=== PATIENT | female | born 1955 | race Caucasian/White ===

== ENCOUNTER 2020-10-26 09:10 | Outpatient (CLI) | payer OTHER, SELFPAY ==
--- NOTE | ~2020-10-26 | MM_ITS ---
EXAMINATION: MM screening [facility] BI w [place] HISTORY: Screening mammogram TECHNIQUE: Craniocaudal and mediolateral oblique 3-D tomosynthesis images were obtained and synthetic 2-D images were generated. CAD analysis was submitted and interpreted. COMPARISON: 10/02/2019, 09/09/2018, 08/13/2017, 07/31/2016 BREAST PARENCHYMAL COMPOSITION: There are scattered areas of fibroglandular density. FINDINGS: There is no evidence of suspicious mass, calcification, or architectural distortion to sugg est malignancy in either breast. There has been no suspicious interval change. IMPRESSION: 1. No mammographic evidence of malignancy. 2. Recommend routine screening mammography in one year. BI-RADS Category 2: Benign finding(s). Reviewed, dictated and finalized at location A. [employer]IST
== END 2020-10-26 09:11 | disposition home or self-care (01) ==
PROVIDERS: PCP Family Medicine; Visit Provider Nurse Practitioner Obstetrics & Gynecology
DX: Z12.31 Encounter for screening mammogram for malignant neoplasm of breast (principal)
CPT/HCPCS: 77063; 77067

== ENCOUNTER 2021-05-16 14:43 | Outpatient (CLI) | payer MEDICARE, SELFPAY ==
--- NOTE | ~2021-05-16 | DEXA_ITS ---
Bone Density Report Name: Nina Patel Age: 66 Sex: Female Ethnicity: White Date of : 1955 Indication: postmenopausal; Referring Provider: Ivette Milton Study: Bone densitometry was performed. Exam Date: May 16, 2021 Accession number: [id number] Bone Density: Region BMD T-score Z-score Classification AP Spine (L1, L2, L3) 0.968 -0.5 1.3 Normal Femoral Neck (Left) 0.744 -0.9 0.6 Normal Total Hip (Left) 0.905 -0.3 0.9 Normal Total Hip Bilateral Avg 0.913 -0.3 0.9 Normal Femoral Neck (Right) 0.809 -0.4 1.2 Normal Total Hip (Right) 0.920 -0.2 1.0 Normal World Health Organization criteria for BMD impression classify patients as: Normal (T-score at or above -1.0), Osteopenia (T-score between -1.0 and -2.5), or Osteoporosis (T-score at or below -2.5). 10-year Fracture Risk: FRAX not reported because: All T-scores for Spine Total, Hip Total, Femoral Neck at or above -1.0 Previous Exams: Region Exam Age BMD T-score BMD Change BMD Change Date g/cm2 vs Baseline vs Previous AP Spine(L1, L2, L3) 05/16/2021 66 0.968 -0.5 -0.040(-4.0%)# -0.019(-1.9%)# 05/28/2013 58 0.987 -0.3 -0.021(-2.1%)# -0.072(-6.8%)# 02/26/2009 53 1.058 0.4 0.051(5.0%)* 0.051(5.0%)* 01/24/2007 51 1.008 -0.1 Total Hip(Left) 05/16/2021 66 0.905 -0.3 -0.074(-7.6%)# -0.093(-9.3%)# 05/28/2013 58 0.998 0.5 0.018(1.9%)# 0.003(0.3%)# 02/26/2009 53 0.995 0.4 0.016(1.6%) 0.016(1.6%) 01/24/2007 51 0.979 0.3 Total Hip(Right) 05/16/2021 66 0.920 -0.2 -0.110(-10.7%) -0.084(-8.4%)# 05/28/2013 58 1.004 0.5 -0.026(-2.5%)# -0.035(-3.3%)# 02/26/2009 53 1.038 0.8 0.009(0.9%) 0.009(0.9%) 01/24/2007 51 1.030 0.7 *Denotes significance at 95% confidence level, LSC for AP Spine = 0.022 g/cm2, LSC for Total Hip = 0.027 g/cm2 Clinical Information Provided by Patient: Patient maximum height was 64 Menopause Age: 56 Drinks caffeinated beverages Onset of menses at age 17 Number of children 0 Impression: The patient has normal bone mass. No significant bone loss was observed. Discussion: BONE DENSITY IS ABOVE THE MINIMUM DESIRABLE LEVEL AT ALL SKELETAL SITES TESTED. This patient?s bone mineral density is above the minimum desirable level (T-score -1.0 or better) at all sites measured. The patient should follow a healthful lifestyle (good nutrition with adequate calcium and vitamin D, and appropriate toyin
== END 2021-05-16 14:44 | disposition home or self-care (01) ==
LOC: ANHIMG 14:45
PROVIDERS: PCP Family Medicine; Visit Provider Physician Assistant
DX: Z78.0 Asymptomatic menopausal state (principal)
CPT/HCPCS: 77080

== ENCOUNTER 2021-10-28 07:32 | Outpatient (CLI) | payer MEDICARE, SELFPAY ==
--- NOTE | ~2021-10-28 | MM_ITS ---
EXAMINATION: MM screening [facility] BI w [place] HISTORY: Screening mammogram TECHNIQUE: Craniocaudal and mediolateral oblique 3-D tomosynthesis images were obtained and synthetic 2-D images were generated. CAD analysis was submitted and interpreted. COMPARISON: 10/26/2020, 10/02/2019, 09/09/2018 BREAST PARENCHYMAL COMPOSITION: There are scattered areas of fibroglandular density. FINDINGS: There is no evidence of suspicious mass, calcification, or architectural distortion to sugg est malignancy in either breast. There has been no suspicious interval change. IMPRESSION: 1. No mammographic evidence of malignancy. 2. Recommend routine screening mammography in one year. BI-RADS Category 1: Negative Reviewed, dictated and finalized at location A. [employer]RE[employer] ANALYST
== END 2021-10-28 07:33 | disposition home or self-care (01) ==
PROVIDERS: PCP Family Medicine; Visit Provider Family Medicine
DX: Z12.31 Encounter for screening mammogram for malignant neoplasm of breast (principal)
CPT/HCPCS: 77063; 77067

== ENCOUNTER 2022-07-10 09:49 | Outpatient (CLI) | payer MEDICARE, SELFPAY ==
--- NOTE | 2022-07-10 10:00 | EST_ITS ---
Patient Info Name: Nina Patel Age: 67 years : 1955 Gender: Female Exam Date: 07/10/2022 11:07 AM Exam Location: [facility] Stress Patient Status: Outpatient Admit Date: 07/10/2022 Staff Ordering Physician: Sara Vee Attending Provider: Jessa Abbasi DO Exercise Technologist: Celine Mcghee RDCS Exercise Physician: Dimitrios Silva DO Exam Type: CA stress test treadmill Study Info Indications R01.1 - Cardiac murmur, unspecified A treadmill exercise stress test was performed. Summary 1. 1. Negative Rasheed exercise stress test for ischemic ST changes by ECG criteria. 2. 2. Good functional capacity, achieving 7 METs of workload. 3. 3. Appropriate HR response to exercise. 4. 4. Appropriate HR recovery at 1 minute post exercise. 5. 5. No imaging with stress testing. 6. 6. Patient informed of the above results. Protocol: Rasheed Stress ECG Details Stage: REST Duration (min): 1 min : 20 sec Speed (mph): 0.0 Grade (%): 0 HR (bpm): 77 SBP (mmHg): 129 DBP (mmHg): 102 METS: --- Stage: REST Duration (min): 20 min : 50 sec Speed (mph): 0.0 Grade (%): 0 HR (bpm): 78 SBP (mmHg): 129 DBP (mmHg): 102 METS: --- Stage: STAGE 1 Duration (min): 1 min : 0 sec Speed (mph): 1.7 Grade (%): 10 HR (bpm): 98 SBP (mmHg): 129 DBP (mmHg): 102 METS: --- Stage: STAGE 1 Duration (min): 2 min : 0 sec Speed (mph): 1.7 Grade (%): 10 HR (bpm): 112 SBP (mmHg): 129 DBP (mmHg): 102 METS: --- Stage: STAGE 1 Duration (min): 3 min : 0 sec Speed (mph): 1.7 Grade (%): 10 HR (bpm): 127 SBP (mmHg): 129 DBP (mmHg): 102 METS: --- Stage: STAGE 2 Duration (min): 1 min : 0 sec Speed (mph): 2.5 Grade (%): 12 HR (bpm): 168 SBP (mmHg): 160 DBP (mmHg): 108 METS: --- Stage: STAGE 2 Duration (min): 1 min : 30 sec Speed (mph): 2.5 Grade (%): 12 HR (bpm): 145 SBP (mmHg): 160 DBP (mmHg): 108 METS: --- Stage: RECOVERY Duration (min): 0 min : 29 sec Speed (mph): 0.0 Grade (%): 0 HR (bpm): 174 SBP (mmHg): 175 DBP (mmHg): 105 METS: --- Stage: RECOVERY Duration (min): 1 min : 29 sec Speed (mph): 0.0 Grade (%): 0 HR (bpm): 118 SBP (mmHg): 160 DBP (mmHg): 100 METS: --- Stage: RECOVERY Duration (min): 2 min : 29 sec Speed (mph): 0.0 Grade (%): 0 HR (bpm): 104 SBP (mmHg): 160 DBP (mmHg): 100 METS: --- Stage: RECOVERY Duration (min): 3 min : 29 sec Speed (mph): 0.0 Grade (%): 0 HR (bpm): 96 SBP (mmHg): 159 DBP (mmHg): 113 METS: --- Stage: RECOVERY Duration (min): 4 min : 29 sec Speed (mph): 0.0 Grade (%): 0 HR (bpm): 91 SBP (mmHg): 159 DBP (mmHg): 113 METS: --- Stage: RECOVERY Duration (min): 4 min : 57 sec Speed (mph): 0.0 Grade (%): 0 HR (
== END 2022-07-10 09:50 | disposition home or self-care (01) ==
LOC: ANHCARD 09:51
PROVIDERS: PCP Family Medicine; Visit Provider Family Medicine
DX: R01.1 Cardiac murmur, unspecified (principal)
CPT/HCPCS: 93017

== ENCOUNTER 2022-12-09 08:03 | Outpatient (CLI) | payer MEDICARE, SELFPAY ==
--- NOTE | ~2022-12-09 | MM_ITS ---
EXAMINATION: MM screening [facility] BI w [place] HISTORY: Screening mammogram TECHNIQUE: Craniocaudal and mediolateral oblique 3-D tomosynthesis images were obtained and synthetic 2-D images were generated. CAD analysis was submitted and interpreted. COMPARISON: 10/28/2021, 10/26/2020, 10/02/2019 bilateral screening mammogram examinations BREAST PARENCHYMAL COMPOSITION: There are scattered areas of fibroglandular density. FINDINGS: There is no evidence of suspicious mass, calcification, or architectural distortion to sugg est malignancy in either breast. There has been no suspicious interval change. IMPRESSION: 1. No mammographic evidence of malignancy. 2. Recommend routine screening mammography in one year. BI-RADS Category 1: Negative Reviewed, dictated and finalized at location A. [employer]
== END 2022-12-09 08:04 | disposition home or self-care (01) ==
PROVIDERS: PCP Family Medicine; Visit Provider Family Medicine
DX: Z12.31 Encounter for screening mammogram for malignant neoplasm of breast (principal)
CPT/HCPCS: 77063; 77067

== ENCOUNTER 2023-05-31 08:19 | Outpatient (CLI) | payer MEDICARE, SELFPAY ==
--- NOTE | 2023-06-11 18:40 | WPDHOMESLEEP ---
Sleep Study - Home Unattended Date of Study: 05/31/23 Ordering Provider: ABDIRAHMAN LoweC Interpreting Provider: Mary Trammell, DO Home Sleep Study Type: Watch PAT Height: 1.63 m Weight: 65.771 kg Body Mass Index: 24.9 Neck Circumference (inches): 14 [place]: 2 Reason for Sleep Study Wakes herself up from snoring Sleep History The patient is a 68-year-old female with hypertension, hyperlipidemia, GERD and depression that had a sleep study ordered by her primary care for evaluation of sleep apnea. She occasionally awakens from sleep short of breath. She rarely awakens at night with heartburn, belching or cough. She occasionally snores and is occasionally loud enough that others complain. She frequently has trouble sleeping when she has a cold. She occasionally wakes up gasping for air throughout the night. She rarely has breathing problems at night observed by herself or others. She frequently sweats excessively at night. She rarely has heart palpitations or irregular heartbeats during the night. She denies falling asleep during the day and while driving. She denies sleep paralysis, cataplexy and hypnagogic / hypnopompic hallucinations. She denies having trouble at school or work due to sleepiness. She denies feeling afraid of going to sleep. She occasionally has nightmares and occasionally remembers her dreams. She occasionally has thoughts racing through her mind. She occasionally feels sad, depressed and anxious. She rarely has muscular tension. She rarely notices parts of her body jerk. She rarely kicks during the night. She occasionally has crawling and aching feelings in her legs and occasionally has leg pain during the night. He occasionally grinds her teeth during sleep and occasionally awakens with morning jaw pain. She is occasionally bothered by pain during the day but rarely awakened by pain during the night. She rarely wakes up feeling stiff in the morning. She rarely wakes up with sore or achy muscles. She rarely wakes up with pain in the neck, spine or other joints. She goes to bed at 10:00 p.m. on both weekdays and weekends. It takes her 30 minutes to fall asleep. She wakes up twice throughout the night to urinate and is able to fall back asleep within a few minutes. She wakes up at 7:30 a.m. on weekdays and 8:30 a.m. on the weekends. She typically gets 8 hours of sleep per night. She will stay in bed for a few minutes after waking up in the morning. She currently lives with her but they sleep in separate bedrooms. She does not consume any caffeinated beverages within 2 hours of bedtime. She does not engage in physical exercise before bedtime. He will read before falling asleep. She will occasionally take a nap in the afternoon or the evening but they are not refreshing. She does not consume any caffeinated beverages throughout the day. She will have alcoholic beverages twice per month. She denies tobacco or recreational drug use. [facility] Past Medical History Medical History Encounter for dual-energy x-ray absoptiometry review (~05/2013) Hepatitis C antibody test negative (01/02/07) History of bone density study (~05/28/13) History of chicken pox History of measles History of mumps Hyperlipidemia Surgical History Surgical History History of dilatation and curettage (~11/22/09) Family History Family History Father Family history of elevated blood lipids Family history of coronary artery disease Bipolar 1 disorder Mother Hypertension Sibling Bipolar 1 disorder Sibling No chronic problems Social History Social History Smoking status: Never smoker Alcohol intake: current Substance use: never Substance use type: does not use Lack of Tr
[2023-06-11 18:41] VITALS: BMI 24.9
== END 2023-06-01 09:56 | disposition home or self-care (01) ==
LOC: ANHCSM 08:20
PROVIDERS: PCP Family Medicine; Visit Provider Nurse Practitioner
DX: G47.33 Obstructive sleep apnea (adult) (pediatric) (principal)
CPT/HCPCS: 95800

== ENCOUNTER 2023-12-11 07:21 | Outpatient (CLI) | payer MEDICARE, SELFPAY ==
--- NOTE | ~2023-12-11 | MM_ITS ---
EXAMINATION: MM screening [facility] BI w [place] HISTORY: Screening TECHNIQUE: Craniocaudal and mediolateral oblique 3-D tomosynthesis images were obtained and synthetic 2-D images were generated. CAD analysis was submitted and interpreted. COMPARISON: Comparison to multiple prior studies sequentially, with oldest reviewed study dated 07/23. BREAST PARENCHYMAL COMPOSITION: Not dense: There are scattered areas of fibroglandular density. FINDINGS: There is a new focal asymmetry superiorly in the left breast on MLO view. The right breast is stable without evidence for malignancy. IMPRESSION: 1. New focal left breast asymmetry superiorly on MLO view. 2. Additional mammographic views and possible breast ultrasound are recommended. BI-RADS Category 0: Incomplete: Needs additional imaging evaluation. Reviewed, dictated and finalized at location A. UP MAN IMPRESSION: 1. New focal left breast asymmetry superiorly on MLO view. 2. Additional mammographic views and possible breast ultrasound are recommended . BI-RADS Category 0: Incomplete: Needs additional imaging evaluation.
== END 2023-12-11 07:22 | disposition home or self-care (01) ==
PROVIDERS: PCP Family Medicine; Visit Provider Nurse Practitioner
DX: Z12.31 Encounter for screening mammogram for malignant neoplasm of breast (principal); R92.8 Other abnormal and inconclusive findings on diagnostic imaging of breast
CPT/HCPCS: 77063; 77067

== ENCOUNTER 2024-01-07 10:09 | Outpatient (CLI) | payer MEDICARE, SELFPAY ==
--- NOTE | ~2024-01-07 | MMUS_ITS ---
EXAMINATION: MM diagnostic [facility] LT w [place], US breast LT limited HISTORY: Follow-up left breast asymmetry TECHNIQUE: Additional 3-D tomosynthesis images of the left breast were performed and synthetic 2-D im ages were generated. CAD analysis was submitted and interpreted. High resolution Limited left breast ultrasound was performed. COMPARISON: 12/11/2023 BREAST PARENCHYMAL COMPOSITION: Not dense: There are scattered areas of fibroglandular density. FINDINGS: MAMMOGRAPHIC FINDINGS: Focal asymmetry superiorly in the left breast is less apparent with spot compression and mediolateral views. No discrete mass, suspicious architectural distortion or abnormal calcifications. ULTRASOUND: Limited left breast ultrasound: At 2:30, 7 cm from the nipple is an oval hypoechoic parallel oriented 5 mm mass without posterior features or internal vascularity, likely corresponding to the area of ma mmographic concern. IMPRESSION: 1. Left breast mass at 2:30, 7 cm from the nipple measuring 5 mm, likely benign. 2. Recommend 6 month follow-up diagnostic left mammogram and Limited ultrasound. BI-RADS category 3, probably benign findings. Reviewed, dictated and finalized at location A. IMPRESSION: 1. Left breast mass at 2:30, 7 cm from the nipple measuring 5 mm, likely benign . 2. Recommend 6 month follow-up diagnostic left mammogram and Limited ultrasound . BI-RADS category 3, probably benign findings.
== END 2024-01-07 10:10 | disposition home or self-care (01) ==
LOC: ANHIMG 10:10
PROVIDERS: PCP Family Medicine; Visit Provider Family Medicine
DX: R92.8 Other abnormal and inconclusive findings on diagnostic imaging of breast (principal)
CPT/HCPCS: 76642; 77061; 77065; G0279

== ENCOUNTER 2024-07-22 10:44 | Outpatient (CLI) | payer MEDICARE, SELFPAY ==
--- NOTE | ~2024-07-22 | MMUS_ITS ---
EXAMINATION: US breast LT limited, MM diagnostic [facility] LT w [place] HISTORY: Follow-up left breast mass TECHNIQUE: Additional 3-D tomosynthesis images of the left breast were performed and synthetic 2-D im ages were generated. CAD analysis was submitted and interpreted. High resolution Limited left breast ultrasound was performed. COMPARISON: Comparison to multiple prior studies sequentially, with oldest reviewed study dated 07/23. BREAST PARENCHYMAL COMPOSITION: Not dense: There are scattered areas of fibroglandular density. FINDINGS: MAMMOGRAPHIC FINDINGS: There are nodular asymmetries in the upper outer quadrant of the left breast, unchanged from prior ex aminations. No new masses, calcifications or architectural distortion. ULTRASOUND: Limited left breast ultrasound: At 2:30, 7 cm from the nipple there is an oval circumscribed encapsul ated 5 mm hypoechoic nodule without posterior features or internal vascularity, likely benign. No add itional masses are seen. IMPRESSION: 1. Stable likely benign findings of the left breast. 2. Given one year of interval stability, recommend 12 month followup bilateral mammogram and Limited left breast ultrasound BI-RADS category 3, probably benign findings. Reviewed, dictated and finalized at location B. IMPRESSION: 1. Stable likely benign findings of the left breast. 2. Given one year of interval stability, recommend 12 month followup bilateral mammogram and Limited left breast ultrasound BI-RADS category 3, probably benign findings.
== END 2024-07-22 10:45 | disposition home or self-care (01) ==
LOC: ANHIMG 10:46
PROVIDERS: PCP Family Medicine; Visit Provider Nurse Practitioner
DX: R92.8 Other abnormal and inconclusive findings on diagnostic imaging of breast (principal)
CPT/HCPCS: 76642; 77061; 77065; G0279

== ENCOUNTER 2024-08-14 10:17 | Outpatient (CLI) | payer MEDICARE, SELFPAY ==
--- NOTE | ~2024-08-14 | US_ITS ---
Right second distal phalanx area anteriorly ULTRASOUND Ordering provider: Marti Steele MD History: . Localized swelling, mass and lump, right upper [place] . Comparison: None. FINDINGS/impression: No definite abnormality seen. Reviewed, dictated and finalized at location A.
== END 2024-08-14 10:18 | disposition home or self-care (01) ==
PROVIDERS: PCP Plastic Surgery; Visit Provider Plastic Surgery
DX: R22.31 Localized swelling, mass and lump, right upper limb (principal)
CPT/HCPCS: 76882

== ENCOUNTER 2024-10-08 01:24 | Day surgery (SDC) | payer MEDICARE, SELFPAY ==
[2024-09-25 14:21] VITALS: BMI 25.0
[2024-10-08 06:20] VITALS: BP 111/77; PULSE 69; RESP 16; TEMP 36.1; O2SAT 95; BMI 24.9
[2024-10-08] MEDS: LACTATED RINGERS 1,000 ML 150 ML IV CONT (06:30)
--- NOTE | 2024-10-08 06:54 | P.PNAN_ITS ---
Anes - Initial Pre Proc Eval Procedure: Operation Date: 10/08/24 07:30 Proposed Procedures p Colonoscopy - Milton Samano MD Date/Time: 10/08/24 06:54 Surgeon: Milton Samano MD Pre Op Diagnosis: hx of colon polyps Patient Data Age: 69 Gender: F Height: 1.63 m Weight: 65.8 kg Last Vital Signs Temp 36.1 C L 10/08/24 06:20 Pulse 69 10/08/24 06:20 Resp 16 10/08/24 06:20 BP 111/77 10/08/24 06:20 Pulse Ox 95 10/08/24 06:20 O2 Del Method Room Air 10/08/24 06:20 Allergies Allergy/AdvReac Type Severity Reaction Status Date / Time No Known Allergies Allergy Verified 10/08/24 06:18 Home Medications ?Medication ?Instructions ?Recorded ?Confirmed ?Type multivit with minerals-iron 18 1 tablet PO 10/01/19 07/31/24 History mg-folic ac 400 mcg-vit K 25 mcg tablet (Adults Multivitamin) alprazolam 0.5 mg tablet 0.5 mg PO .COMPLEX 09/04/23 09/25/24 History cholecalciferol (vitamin D3) 50 50 mcg PO DAILY 09/04/23 10/08/24 History mcg (2,000 unit) tablet venlafaxine 150 mg 150 mg PO DAILY 09/04/23 10/08/24 History capsule,extended release 24 hr omeprazole 20 mg capsule,delayed 20 mg PO DAILY #90 caps 05/05/24 10/08/24 Rx release metoprolol succinate 50 mg See Rx Instructions .Route 05/27/24 10/08/24 Rx tablet,extended release 24 hr .COMPLEX #90 tabs fenofibrate 160 mg tablet See Rx Instructions .Route 08/04/24 10/08/24 Rx .COMPLEX #90 tabs lisinopril 5 mg tablet 5 mg PO DAILY #90 tabs 10/01/24 10/08/24 Rx Patient hx anesthesia problems: none Family hx anesthesia problems: none Results Review: All pre-operative results and documents have been reviewed as part of the pre- operative evaluation. [facility] Past Medical History Medical History Encounter for dual-energy x-ray absoptiometry review (~05/2013) Hepatitis C antibody test negative (01/02/07) History of bone density study (~05/28/13) History of chicken pox History of measles History of mumps Hyperlipidemia Surgical History Surgical History History of dilatation and curettage (~11/22/09) Family History Family History Father Family history of elevated blood lipids Family history of coronary artery disease Bipolar 1 disorder Mother Hypertension Sibling Bipolar 1 disorder Sibling No chronic problems Social History Social History Smoking status: Never smoker Alcohol intake: current Substance use: never Substance use type: does not use Lack of Transportation: No Lack of Food: Never True Current Housing: I Have Housing Concerned About Future Housing: No Difficulty Paying Gas/Electric Bills: No Difficulty Paying for Meds: No Currently Unemployed: No Education: Bachelor's Degree Difficulty w/ Childcare or Family Care: No Anes - Eval Final PreProcedure Day of Procedure 10/08/24 06:54 Patient weight: normal Heart: regular rate and rhythm Lungs: clear to auscultation Airway: Mallampati scale class II Neurological: alert and oriented Last oral intake: >/= 8 hours ASA classification: II Emergent: no Anesthetic plan: proceed Anesthesia type and monitoring: general GIVS and standard monitoring Results Review: All pre-operative results and documents have been reviewed as part of the pre- operative evaluation. Informed Consent: The patient's anesthetic plan and its attendant risks and benefits were discussed with the patient/family/POA. Questions were solicited and answers provided to the satisfaction of the patient/family/POA.
--- NOTE | 2024-10-08 07:24 | PM.IMHP ---
H&P: HPI History of Present Illness Date/Time: 10/08/24 07:24 Chief Complaint: History of colon polyps Narrative: The patient has a history of colonic polyps, the last colonoscopy was 5 years ago. Review of Systems Review of Systems: All systems reviewed & are unremarkable except as noted in HPI and below PMFSH Past Medical History Medical History Encounter for dual-energy x-ray absoptiometry review (~05/2013) Hepatitis C antibody test negative (01/02/07) History of bone density study (~05/28/13) History of chicken pox History of measles History of mumps Hyperlipidemia Surgical History Surgical History History of dilatation and curettage (~11/22/09) Family History Family History Father Family history of elevated blood lipids Family history of coronary artery disease Bipolar 1 disorder Mother Hypertension Sibling Bipolar 1 disorder Sibling No chronic problems Social History Social History Smoking status: Never smoker Alcohol intake: current Substance use: never Substance use type: does not use Lack of Transportation: No Lack of Food: Never True Current Housing: I Have Housing Concerned About Future Housing: No Difficulty Paying Gas/Electric Bills: No Difficulty Paying for Meds: No Currently Unemployed: No Education: Bachelor's Degree Difficulty w/ Childcare or Family Care: No Meds Home Medications and Allergies Home Medications ?Medication ?Instructions ?Recorded ?Confirmed ?Type multivit with minerals-iron 18 1 tablet PO 10/01/19 07/31/24 History mg-folic ac 400 mcg-vit K 25 mcg tablet (Adults Multivitamin) alprazolam 0.5 mg tablet 0.5 mg PO .COMPLEX 09/04/23 09/25/24 History cholecalciferol (vitamin D3) 50 50 mcg PO DAILY 09/04/23 10/08/24 History mcg (2,000 unit) tablet venlafaxine 150 mg 150 mg PO DAILY 09/04/23 10/08/24 History capsule,extended release 24 hr omeprazole 20 mg capsule,delayed 20 mg PO DAILY #90 caps 05/05/24 10/08/24 Rx release metoprolol succinate 50 mg See Rx Instructions .Route 05/27/24 10/08/24 Rx tablet,extended release 24 hr .COMPLEX #90 tabs fenofibrate 160 mg tablet See Rx Instructions .Route 08/04/24 10/08/24 Rx .COMPLEX #90 tabs lisinopril 5 mg tablet 5 mg PO DAILY #90 tabs 10/01/24 10/08/24 Rx Allergies Allergy/AdvReac Type Severity Reaction Status Date / Time No Known Allergies Allergy Verified 10/08/24 06:18 Vital Signs Vital Signs - 24 hr 10/08/24 06:20 Temperature 97 F L Pulse Rate 69 Respiratory Rate 16 Blood Pressure 111/77 Pulse Oximetry 95 Oxygen Delivery Room Air Exam Const: General: cooperative and healthy appearing Resp: Effort & Inspection: normal respiratory effort and able to speak in complete sentences Auscultation: clear to auscultation bilaterally Cardio: Rate: regular rate Rhythm: regular rhythm GI: Inspection: normal to inspection GI Palp: No No hepatosplenomegaly present Auscultation: normal bowel sounds Rectal Exam: deferred Skin: General skin exam: normal color Psych: Appearance: grossly normal Mental Status: mental status grossly normal Assessment and Plan Assessment and plan (1) Hx of colonic polyps: Code(s): Z86.0100 - Personal history of colon polyps, unspecified Status: Acute Assessment and Plan: The patient is deemed a good candidate for the procedure. Consent signed. Will proceed.
[2024-10-08 07:51] VITALS: BP 93/41; PULSE 59; RESP 19; O2SAT 100
[2024-10-08 08:01] VITALS: BP 93/56; PULSE 70; RESP 18; O2SAT 100
[2024-10-08 08:11] VITALS: BP 102/73; PULSE 70; RESP 19; O2SAT 99
== END 2024-10-08 08:22 | disposition home or self-care (01) ==
PROVIDERS: PCP Family Medicine; Referring Provider Nurse Practitioner; Visit Provider Internal Medicine Gastroenterology
PROC: 0DJD8ZZ Inspection of Lower Intestinal Tract, Via Natural or Artificial Opening Endoscopic (ICD-10-PCS; CPT 45378; principal; 2024-10-08 07:30)
DX: Z12.11 Encounter for screening for malignant neoplasm of colon (principal); K57.30 Diverticulosis of large intestine without perforation or abscess without bleeding; Z86.0100 Personal history of colon polyps, unspecified
CPT/HCPCS: G0105; J2003; J2704; J7120

== ENCOUNTER 2025-05-22 14:16 | Outpatient (CLI) | payer MEDICARE, SELFPAY ==
--- NOTE | ~2025-05-22 | DEXA_ITS ---
Bone Density Report Name: ANA OWENS Age: 70 Sex: Female Ethnicity: White Date of : 1955 Indication: postmenopausal; screening for osteoporosis; height loss; Referring Provider: VERITO CURRAN Study: Bone densitometry was performed. Exam Date: May 22, 2025 Accession number: [id number] Bone Density: Region BMD T-score Z-score Classification AP Spine(L1, L2, L3) 0.932 -0.8 1.2 Normal Femoral Neck (Left) 0.717 -1.2 0.6 Osteopenia Total Hip (Left) 0.866 -0.6 0.8 Normal Femoral Neck (Right) 0.795 -0.5 1.3 Normal Total Hip (Right) 0.901 -0.3 1.1 Normal Total Hip Mean 0.883 -0.5 1.0 Normal World Health Organization criteria for BMD impression classify patients as: Normal (T-score at or above -1.0), Osteopenia (T-score between -1.0 and -2.5), or Osteoporosis (T-score at or below -2.5). 10-year Fracture Risk(1): Major Osteoporotic Fracture 9.3% Hip Fracture 1.0% Reported Risk Factors: [place] (), Neck BMD=0.717, BMI=25.1 (1) FRAX(R) Version 3.08. Fracture probability calculated for an untreated patient. Fracture probability may be lower if the patient has received treatment. Previous Exams: -- Region Exam Age BMD T-score BMD Change BMD Change Date g/cm2 vs Baseline vs Previous -- AP Spine (L1-L3) 05/22/2025 70 0.932 -0.8 -3.7%* -3.7%* 05/16/2021 66 0.968 -0.5 Total Hip(Left) 05/22/2025 70 0.866 -0.6 -4.3%* -4.3%* 05/16/2021 66 0.905 -0.3 Total Hip(Right) 05/22/2025 70 0.901 -0.3 -2.1% -2.1% 05/16/2021 66 0.920 -0.2 -- *Denotes significance at 95% confidence level, LSC for AP Spine = 0.022 g/cm2, LSC for Total Hip = 0.027 g/cm2 Clinical Information Provided by Patient: Has used the following medications: Vitamin D Patient maximum height was 65 Menopause Age: 56 No regular weight bearing exercise Does not regularly consume dairy products Drinks caffeinated beverages Onset of menses at age 17 Number of children 0 Impression: The patient has low bone mass, based on the Left Femoral Neck T-score. The patient has an estimated ten-year risk of hip fracture of 1% and an estimated ten-year risk of major fracture of 9.3%, based on the WHO FRAX algorithm. The BMD for the AP Spine (L1-L3) decreased, changing by -3.7% since the last DXA exam. The BMD for the Total Hip(Left) decreased, changing by -4.3% since the last DXA exam. Discussion: BONE DENSITY IS LOW AT ONE OR MORE SKELETAL SITES. This patient's lowest T-score is low at one or more skeletal sites. It meets the World Health Organization's (WHO) criteria for ?low bone mass? (T-score between -1.0 and -2.5). The patient's 10-year risk of fracture as calculated by FRAX is less than the threshold where pharmacological therapy is recommended by the National Osteoporosis Foundation (NOF). However, all treatment decisions require clinical judgment and consideration of individual patient factors, including patient preferences, comorbidities, previous drug use, risk factors not captured in the FRAX model (e.g., frailty, falls, vitamin D deficiency, increased bone turnover, interval significant decline in bone density) and possible under or overestimation of fracture risk by FRAX. The patient should follow a healthful lifestyle (good nutrition with adequate calcium and vitamin D, and appropriate weight-bearing exercise). Follow-Up: Consider repeating this study in 2 years to reassess this patient's status, or sooner if there is some new clinical indication. Reported by: DANK on 05/22/2025 2:33:00 PM. Reviewed, dictated and finalized at location A.
== END 2025-05-22 14:17 | disposition home or self-care (01) ==
PROVIDERS: PCP Family Medicine; Visit Provider Obstetrics & Gynecology
DX: M85.89 Other specified disorders of bone density and structure, multiple sites (principal); Z78.0 Asymptomatic menopausal state; Z13.820 Encounter for screening for osteoporosis
CPT/HCPCS: 77080

== ENCOUNTER 2025-07-23 00:48 | Day surgery (SDC) | payer MEDICARE, SELFPAY ==
[2025-07-13 12:34] VITALS: BMI 24.5
--- OUTSIDE RECORDS SUMMARY | 2025-07-23 00:52 | XMS_ITS | Clinical Summary ---
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 Gender Identity Not on file Sexual Orientation Not on file Plan of Treatment Health Maintenance Due Date Last Done Comments DTAP/TDAP/TD VACCINES (1 - Tdap) 1975 BREAST CANCER SCREENING 1996 COLORECTAL SCREENING 2001 Colorectal Cancer Screening 2001 FIT-DNA Q 3 years 2001 FIT/FOBT Q 1 year 2001 Flex Sig/CT Colonography Q 5 years 2001 PNEUMOCOCCAL VACCINE 50+ YEARS (1 of 1 - PCV) 03/31/20 06 ZOSTER VACCINE (1 of 2) 2006 OSTEOPOROSIS SCREENING 2021 INFLUENZA VACCINE (#1) 2025 RSV VACCINE (60+ or ) (1 - 1-dose 75+ series) 2031 Care Teams Obstetrical Tech Relationship Specialty Start Date End Date Pa Damian MD [address] [place] [id number] PCP - General 11/11/04
--- OUTSIDE RECORDS SUMMARY | 2025-07-23 00:52 | XMS_ITS | Encounter Summary ---
Author Organization [employer] Address [address] [place] [address] Care Team Providers Care Outside Sales Representative Insurance Name Role Phone Pa Damian MD Primary Care Provider [phone] Encounter Details Date Type Department Care Team (Latest Contact Info) Description 11/11/2004 Outpatient Historical [facility] Farhad Bernabe MD 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
--- OUTSIDE RECORDS SUMMARY | 2025-07-23 00:52 | XMS_ITS | Clinical Summary ---
Author Organization [facility] Address [address] [place] [address] Care Team Providers Care Plastic Sheets Finishing Supervisor Name Role Phone Unavailable Primary Care Provider Unavailabl e Immunizations Immunization Administration Dates Next Due Covid-19, Mrna, Lnp-s, Pf, 30 Mcg/0.3 Ml Dose (P fizer) 07/29/2021 Social History Tobacco Use Types Packs/Day Years Used Date Smoking Tobacco: Never Assessed Comments Unknown Sex and Gender Information Value Date Recorded Sex Assigned at Not on file Legal Sex Female 12:44 PM CDT Gender Identity Not on file Sexual Orientation Not on file Plan of Treatment Health Maintenance Due Date Last Done Comments Hepatitis C Virus (HCV) Screening 1955 Cologuard 2001 Colonoscopy 2001 Colorectal Cancer Screening 2001 Immunochemical Fecal Occult Blood 2001 Pneumococcal Immunization (50+ years) (2 of 2 - PCV20 or PCV21) 04/13/2022 04/13/2021 Influenza Immunization (#1) 2025 0911/2020, 06/14/2020, 07/29/2019, Additional history exists SARS-COV-2 Immunization ( season) 2025 07/29/2021, 01/06/2021, 12/16/2020 Respiratory Syncytial Virus (RSV) Immunization (Adult) (1 - 1-dose 75+ series) 2031 DTaP/Tdap/Td Immunization Discontinued 11/04/2020 TdaP Immunization Completed 11/04/2020 Zoster Immunization Completed 11/29/2020, 0 Hepatitis B Immunization Aged Out No longer eligible based on patient's age to complete this topic Human Papillomavirus (HPV) Immunization Aged Out No longer eligible based on patient's age to complete this topic Meningococcal Immunization (ACWY) Aged Out No longer eligible based on patient's age to complete this topic Rotavirus Immunization Aged Out No lo nger eligible based on patient's age to complete this topic
--- OUTSIDE RECORDS SUMMARY | 2025-07-23 00:52 | XMS_ITS | Encounter Summary ---
Author Organization [facility] Address [address] [place] [address] Care Team Providers Care High [employer] Media Specialist Name Role Phone Pa Damian MD Primary Care Provider [phone] Encounter Details Date Type Department Care Team (Late st Contact Info) Description 06/11/2019 Lab Requisition [facility] [address] [address] Rafael Pascal MD [address] [place] [id number] Social History Tobacco Use Types Packs/Day Years Used Date Smoking Tobacco: Never Assessed Comments Unknown Sex and Gender Information Value Date Recorded Sex Assigned at Not on file Legal Sex Female 10:20 AM CDT Gender Identity Not on file Sexual Orientation Not on file documented as of this encounter Plan of Treatment Not on file documented as of this encounter Procedures Procedure Name Priority Date/Time Associated Diagnosis Comments DERMATOPATHOLOGY Routine 06/10/2019 12:0 0 AM CDT documented in this encounter Results * DERMATOPATHOLOGY (06/10/2019 12:00 AM CDT) Case Report Dermatopathology Report Case: [id number] Authorizing Provider: Rafael Pascal MD Collected: 06/10/2019 12:00 AM Ordering Location: [facility] Received: 06/11/2019 11:16 AM Pathologist: Conchis Guo MD Specimen: Skin, left lateral mid back 9 4:04 PM CDT DERMATOPATHOLOGY LABORATORY Final Diagnosis Specimen A. SKIN, left lateral mid back: LENTIGINOUS MELANOCYTIC NEVUS, JUNCTIONAL TYPE, IRRITATED (JUNCTIONAL MELANOCYTIC NEVUS WITH ARCHITECTURAL DISORDER) (D22.5) POST-INFLAMMATORY PIGMENT ALTERATION (L81.9) 9 4:04 PM CDT DERMATOPATHOLOGY LABORATORY at 1604 CDT Clinical History R/O dys nevus 4:04 PM CDT DERMATOPATHOLOGY LABORATORY Gross Description Specimen A: Received is one formalin filled container labeled with the patient's name and designated left lateral mid back. The specimen consists of a shave biopsy measuring 11x6x1 mm. Jar 0. 4:04 PM CDT DERMATOPATHOLOGY LABORATORY Microscopic Description Specimen A. SKIN, left lateral mid back: This is a junctional nevus. There is melanin pigment in the stratum corneum. There is architectural disorder characterized by a lentiginous proliferation of melanocytes between irregular nests of cells along the dermal-epidermal junction, highlighted by MART-1/Melan-A immunohistochemical staining. There is underlying fibroplasia of the papillary dermis. Original and deeper sections were reviewed. (Junctional Anibal's Nevus or Junctional Dysplastic Nevus) Sections also show abundant melanin within melanophages around the superficial vascular plexus. 9 4:04 PM CDT DERMATOPATHOLOGY LABORATORY Disclaimer An external and internal positive and negative controls are appropriate for the histochemical, immunohistochemical and immunofluorescence stain(s) in this case (if any), except where stated explicitly. The performance characteristics of the stain(s) cited in this report were developed and its performance characteristic determined by the Dermatopathology Laboratory at [facility], directed by Dr. Vivian Guo. These tests need not be, and therefore are not, approved by the [place] Food and Drug Administration. The tests are used for clinical purposes. Billing Codes Specimen Charges Stain Charges 90117 1 89870 1 9 4:04 PM CDT DERMATOPATHOLOGY LABORATORY Embedded Images 4:04 PM CDT DERMATOPATHOLOGY LABORATORY Pathology/Cytolog y TISSUE SPECIMEN FROM SKIN / Unknown 06/10/2019 06/11/2019 11:16 AM CDT Rafael Pascal MD LAB - PATHOLOGY/CYTOLOGY ORD ERABLES Final Result DERMATOPATHOLOGY LABORATORY [facility] - Department of Dermatology [address] [place] [address], [facility] [phone] documented in this encounter Visit Diagnoses Not on filedocumented in this encounter Care Teams High School Library Media Specialist Relationship Specialty Start Date End Date Pa Damian MD [address] [place] [address] PCP - General Family Medicine 03/24/17 documented as of this encounter
--- OUTSIDE RECORDS SUMMARY | 2025-07-23 00:52 | XMS_ITS | Clinical Summary ---
Author Organization [facility] [employer] Address [address] [place] [address] Care Team Providers Care Hydrogenation Still Operator Name Role Phone Pa Damian MD Primary Care Provider [phone] Source Comments [facility],non-owned Affiliates and Associated Physician Practices is amultiple site organization consisting of ambulatory clinics and hospital sitesin [place], [place], [place] and [place]. This disclosure is being madepursuant to the Care Everywhere program and may not contain all information available regarding this patient. Last updated 18.[facility] Allergies No known active allergies Medications * Be aware that medications may not be up to date on this document. Alwaysverify current medications with the patient. predniSONE (DELTASONE) 20 MG tablet Take 2 tabs daily 4 days 20 Tab 03/24/2017 Active benzonatate (TESSALON) 200 MG capsule Take 1 Cap by mouth 3 times daily as needed for Cough 30 Cap 03/24/2017 Active albuterol HFA (PROVENTIL;NGOC CORINNE;PROAIR) 108 (90 BASE) MCG/ACT inhaler Inhale 2 Puffs by mouth every 4 hours as needed 1 Inhaler 03/24/2017 Active Social History Tobacco Use Types Packs/Day Years Used Date Smoking Tobacco: Never Assessed Comments Unknown Sex and Gender Information Value Date Recorded Sex Assigned at Not on file Legal Sex Female 10:20 AM CDT Gender Identity Not on file Sexual Orientation Not on file Last Filed Vital Signs Vital Sign Reading Time Taken Comments Blood Pressure 122/80 03/24/2017 2:20 PM CDT Pulse 91 03/24/2017 2:20 PM CDT Temperature 37.3 C (99.1 F) 03/24/2017 2:20 PM CDT Respiratory Rate 16 03/24/2017 2:20 PM CDT Oxygen Saturation 99% 03/24/2017 2:20 PM CDT Inhaled Oxygen Concentration - - Weight 72.6 kg (160 lb) 03/24/2017 2:20 PM CDT Height 162.6 cm (5' 4) 03/24/2017 2:20 PM CDT Body Mass Index 27.46 03/24/2017 2:20 PM CDT Plan of Treatment Health Maintenance Due Date Last Done Comments BONE DENSITY TESTING 1955 COLOGUARD (AGES 45-75) - COL ON CA SCREENING 1955 COLON MONITORING 1955 COLONOSCOPY - COLON CA SCREENING 1956 CT COLONOGRAPHY - COLON CA SCREENING 1955 Colorectal Cancer Screening 1955 FIT - COLON CA SCREENING 1955 FLEX SIG - COLON CA SCREENING 1955 LIPID TESTING 1955 MAMMOGRAM 1955 MEDICARE AWV 12 MONTHS 1955 HEPATITIS C SCREENING 03/27/1974 DTAP/TDAP/TD VACCINES (1 - Tdap) 1975 PNEUMOCOCCAL VACCINE 50+ (1 of 1 - PCV) 2006 ZOSTER VACCINE (1 of 2) 2006 DEPRESSION SCREENING 10/22/2024 COVID-19 VACCINE (1 - 2023-2 5 season) 2025 INFLUENZA VACCINE (#1) 2025 Respiratory Syncytial Virus (RSV) Vaccine Pt: or over 60 yrs (1 - 1-dose 75+ series) 2031 HEPATITIS B VACCINE Aged Out No longe r eligible based on patient's age to complete this topic HIB VACCINE Aged Out No longer eligi ble based on patient's age to complete this topic HPV VACCINE Aged Out No longer eligi ble based on patient's age to complete this topic MENINGOCOCCAL (Group B) VACC INE SHARED DECISION-MAKING Aged Out No longer eligibl e based on patient's age to complete this topic MENINGOCOCCAL GROUPS A/C/Y/W VACCINE Aged Out No longer eligible b ased on patient's age to complete this topic Insurance MEDICARE AETNA Care Teams Hydrogenation Still Operator Relationship Specialty Start Date End Date Pa Damian MD [address] [place] [id number] PCP - General Family Medicine 03/24/17
--- OUTSIDE RECORDS SUMMARY | 2025-07-23 00:52 | XMS_ITS | Patient Health Record ---
Author Organization [facility] [employer] [facility] Address [address] [facility] [address] [place] [address] Care Team Providers Care Pheresis Nurse Name Role Phone Juani Velasquez Unavailable [phone] Brittany Vu Unavailable [phone] Allergies No Known Allergies Results Component Value Reference Range Notes UDT Reviewed date:06/02/2025 08:48:44 AM Interpretation: Performing Lab: Notes/Report: THC N 0 - 50 ng/ml Cocaine N 0 - 300 ng/ml Amphetamine N 0 - 1000 ng/ml Buprenorphine (BUP) N 0 - 10 ng/ml Secobarbital (Bar) N 0 - 300 ng/ml Oxazepam (BZO) N 0 - 300 ng/ml 8-pjyaldwpfl-5,6-epbwcfrw-7,3-diphenylpyrrolidine (ENA P) N 0 - 300 ng/ml Methamphetamine (MET) N 0 - 1000 ng/ml Methylenedioxymethamphetamine (MDMA) N 0 - 500 ng/ml Morphine (MOP 300/LPU4327) N 0 - 300 ng/ml Methadone (MTD) N 0 - 300 ng/ml Phencyclidine (PCP) N 0 - 25 ng/ml Nortriptyline (TCA) N 0 - 1000 ng/ml Oxycodone N 0 - 300 ng/ml Reason For Referral No Information Medications Medication SIG (Take, Route, Frequency, Duration) Notes Start Date End Date Status Venlafaxine HCl ER 150 MG Capsule Extended Release 24 Hour 1 capsule Oral Once a day; Duration: 90 days Active Omeprazole 20 MG Capsule Delayed Release Oral 02/14/2024 Active Metoprolol Succinate ER 50 MG Tablet Extended Release 24 Hour Oral 02/14/2024 Active AFLURIA QD (36 MOS UP)(PF)60 MCG (15 MCG X4)/0.5 ML IM SYRINGE *Reorder from path intelligence for eRx and Interaction Alerts* 02/14/2024 Not-Taking Lisinopril 5 MG Tablet Oral 02/14/2024 Active Fenofibrate 160 MG Tablet Oral 02/14/2024 Active Immunizations Vaccine Route Administration Date Status Comme nts Hib (PRP-OMP), 3 dose schedule Unknown 08/06/2018 Admin istered Influenza virus vaccine, quadrivalent (IIV4), split virus, 0.25 mL dosage Unknown 07/20/2016 Administered Influenza, seasonal, injecta ble, preservative free, 3 yrs and above Unknown 07/23/2013 Administered Influenza, unspecified formulation Unknown 08/06/2018 A dministered Influenza, unspecified formulation Unknown 07/13/2021 A dministered Novel Jblcbrgxt-B0A3-31, preservative free Unknown 07/20/2014 Administered Novel Rmjvuxlei-W7I7-78, preservative free Unknown 07/26/2017 Administered Novel Dgwinndgt-C8K0-60, preservative free Unknown 07/02/2018 Administered Novel Opwhzjizu-H7I2-58, preservative free Unknown 07/11/2018 Administered Novel Ylehjavfv-V0T6-90, preservative free Unknown 07/29/2019 Administered Novel Hvmpzkfon-W0J9-61, preservative free Unknown 06/14/2020 Administered Pfizer Biontech Covid-19 Vac cine 2nd dose Unknown 12/16/2020 Administered Pfizer Biontech Covid-19 Vac cine 2nd dose Unknown 01/06/2021 Administered Pfizer Biontech Covid-19 Vac cine 2nd dose Unknown 07/29/2021 Administered Pfizer-Biontech Covid-19 Vac cine 1st dose Unknown 02/15/2022 Administered Pneumococcal conjugate PCV 13 Unknown 04/13/2021 Admini stered Tdap Unknown 11/04/2020 Administered Zoster Unknown 09/06/2020 Administered Zoster Unknown 11/29/2020 Administered Social History Tobacco Use: Social History Observation Description Date Details (start date - stop date) Never Smoker NA - NA Sex Assigned At : Social History Observation Description Sex Assigned At Female Social History Social History Social Info Question Answer Notes Household: Marital Status: Drug/Alcohol: Social Info Question Answer Notes Drugs Have you used drugs other than those for medical reasons in the past 12 months? No AUDIT-C (Standard) Did you have a drink containing alcohol in the past year? Yes How often did you have a drink containing alcohol in the past year? Monthly or less (1 point) Caffeine Intake: 1-2 cups per day Tobacco Use: Social Info Question Answer Notes Tobacco Control (Standard) Tobacco use: Nonsmoker Additional Details Category Social Info Options Details Migrated Social History Migrated Social History Alcohol Intake: Moderate 07/15/2021,Tobacco Years: Never smoker 12/23/2018 Drug/Alcohol: Do you smoke marijuana? No Problems Problem Type SNOMED Code ICD Code Onset Dates Problem Status W/U Status Risk Notes Problem Mild recurrent major depression (96672226) Major depressive disorder, recurrent, mild (F33.0) Active confirmed Problem Generalized anxiety disorder (23095218) Generalized anxiety disorder (F41.1) Active confirmed Problem Essential hypertension (03734985) Benign essential HTN (I10) Active confirmed Vital Signs Heart Rate 68 /min 12/04/2024 Respiratory Rate 17 /min 06/02/2025 Height-cm 162.61 cm 06/02/2025 Blood pressure diastolic 78 mm Hg 06/02/2025 Weight-kg 66.68 kg 06/02/2025 Height 64.02 in 06/02/2025 Blood pressure systolic 112 mm Hg 06/02/2025 Weight 147 lbs 06/02/2025 BMI 25.21 kg/m2 06/02/2025 Encounters Encounter Location Date Provider Diagnosis [facility] [email or web address] [place] [address] [facility] [address] [address] 12/04/2024 Brittany Vu Benign essential HTN I10 ; Major depressive disorder, recurrent, mild F33.0 and Generalized anxiety disorder F41.1 [facility] [email or web address] [place] [address] [address] 06/02/2025 Juani Velasquez Major depressive disorder, recurrent, mild F33.0 ; Benign essential HTN I10 and Generalized anxiety disorder F41.1 Assessments Encounter Date Diagnosis (ICD Code) Assessment Notes Treatment Notes Treatment Clinical Notes Section Notes 12/04/2024 Benign essential HTN (ICD-10 - I10) 06/02/2025 Major depressive disorder, recurrent, mild (ICD-10 - F33.0) 1, Depression Effexor ER 150 mg daily 2. Anxiety Effexor 150 MG daily in am monitor B/P 3. htn B/P EDUCATION educated on healthy b/p 120/80 monitor b/p at home refer to PCP, heart healthy diet and excise limit salt intake limit soda intake and caffiene increase water slums= 28 06/02/25 Patient educated on all medications including potential benefits, side effects, risks. Educated on proper dosing schedule and importance of compliance educated on all medications, benefits, side effects and risk, and educated on depression, anxiety, and ADHD, mood d/o and educated on compliance of medications, metabolic and movement d/o education appointment's, continue therapy discussion with patient about course of treatment and patient instructions. education on serotonin syndrome Discussed and educated pt regarding benzodiazepines are generally not intended for prolonged use and that use can cause tolerance, dependence, depression, and associated memory issues including dementias (this list is not exhaustive). Benzodiazepine use is generally not recommended concurrently with pain medications and/or other controlled substances SSRI/SNRI side effects discussed including but not limited to, gastric upset, nausea, vomiting, diarrhea and/or constipation, weight changes, sexual side effects including loss of libido, increased suicidal thoughts/behaviors in children and young adults, and serotonin syndrome. Sleep Hygeine- - KEEP YOUR BEDROOM DARK - GET LOTS OF NATURAL LIGHT IN THE MORNING. - DON'T WORK ON YOUR COMPUTER OR PHONE LATE AT NIGHT. - AVOID NAPS DURING THE DAY. - NO CAFFEINE 3 HOURS OR MORE AFTER WAKE UP TIME. - ONLY USE YOUR BED FOR SLEEPING - GET A RELAXATION ROUTINE BEFORE BED. - IF YOU CAN'T GET TO SLEEP AFTER 15 TO 30 MINUTES GET OUT OF BED AND DO SOMETHING RELAXING. - DON'T DRINK ALCOHOL IN THE EVENING or limit alcohol to 1 drink. Medication Management and Follow-Up - Plan: - Schedule follow-up appointments every 1-3 months to monitor the patient's response to the medication regimen. - Reinforce the importance of avoiding recreational drug use due to potential neurotoxicity and interactions with prescribed medications. 06/02/2025 Benign essential HTN (ICD-10 - I10) 1, Depression Effexor ER 150 mg daily 2. Anxiety Effexor 150 MG daily in am monitor B/P 3. htn B/P EDUCATION educated on healthy b/p 120/80 monitor b/p at home refer to PCP, heart healthy diet and excise limit salt intake limit soda intake and caffiene increase water slums= 28 06/02/25 Patient educated on all medications including potential benefits, side effects, risks. Educated on proper dosing schedule and importance of compliance educated on all medications, benefits, side effects and risk, and educated on depression, anxiety, and ADHD, mood d/o and educated on compliance of medications, metabolic and movement d/o education appointment's, continue therapy discussion with patient about course of treatment and patient instructions. education on serotonin syndrome Discussed and educated pt regarding benzodiazepines are generally not intended for prolonged use and that use can cause tolerance, dependence, depression, and associated memory issues including dementias (this list is not exhaustive). Benzodiazepine use is generally not recommended concurrently with pain medications and/or other controlled substances SSRI/SNRI side effects discussed including but not limited to, gastric upset, nausea, vomiting, diarrhea and/or constipation, weight changes, sexual side effects including loss of libido, increased suicidal thoughts/behaviors in children and young adults, and serotonin syndrome. Sleep Hygeine- - KEEP YOUR BEDROOM DARK - GET LOTS OF NATURAL LIGHT IN THE MORNING. - DON'T WORK ON YOUR COMPUTER OR PHONE LATE AT NIGHT. - AVOID NAPS DURING THE DAY. - NO CAFFEINE 3 HOURS OR MORE AFTER WAKE UP TIME. - ONLY USE YOUR BED FOR SLEEPING - GET A RELAXATION ROUTINE BEFORE BED. - IF YOU CAN'T GET TO SLEEP AFTER 15 TO 30 MINUTES GET OUT OF BED AND DO SOMETHING RELAXING. - DON'T DRINK ALCOHOL IN THE EVENING or limit alcohol to 1 drink. Medication Management and Follow-Up - Plan: - Schedule follow-up appointments every 1-3 months to monitor the patient's response to the medication regimen. - Reinforce the importance of avoiding recreational drug use due to potential neurotoxicity and interactions with prescribed medications. 12/04/2024 Major depressive disorder, recurrent, mild (ICD-10 - F33.0) 12/04/2024 Generalized anxiety disorder (ICD-10 - F41.1) 06/02/2025 Generalized anxiety disorder (ICD-10 - F41.1) 1, Depression Effexor ER 150 mg daily 2. Anxiety Effexor 150 MG daily in am monitor B/P 3. htn B/P EDUCATION educated on healthy b/p 120/80 monitor b/p at home refer to PCP, heart healthy diet and excise limit salt intake limit soda intake and caffiene increase water slums= 28 06/02/25 Patient educated on all medications including potential benefits, side effects, risks. Educated on proper dosing schedule and importance of compliance educated on all medications, benefits, side effects and risk, and educated on depression, anxiety, and ADHD, mood d/o and educated on compliance of medications, metabolic and movement d/o education appointment's, continue therapy discussion with patient about course of treatment and patient instructions. education on serotonin syndrome Discussed and educated pt regarding benzodiazepines are generally not intended for prolonged use and that use can cause tolerance, dependence, depression, and associated memory issues including dementias (this list is not exhaustive). Benzodiazepine use is generally not recommended concurrently with pain medications and/or other controlled substances SSRI/SNRI side effects discussed including but not limited to, gastric upset, nausea, vomiting, diarrhea and/or constipation, weight changes, sexual side effects including loss of libido, increased suicidal thoughts/behaviors in children and young adults, and serotonin syndrome. Sleep Hygeine- - KEEP YOUR BEDROOM DARK - GET LOTS OF NATURAL LIGHT IN THE MORNING. - DON'T WORK ON YOUR COMPUTER OR PHONE LATE AT NIGHT. - AVOID NAPS DURING THE DAY. - NO CAFFEINE 3 HOURS OR MORE AFTER WAKE UP TIME. - ONLY USE YOUR BED FOR SLEEPING - GET A RELAXATION ROUTINE BEFORE BED. - IF YOU CAN'T GET TO SLEEP AFTER 15 TO 30 MINUTES GET OUT OF BED AND DO SOMETHING RELAXING. - DON'T DRINK ALCOHOL IN THE EVENING or limit alcohol to 1 drink. Medication Management and Follow-Up - Plan: - Schedule follow-up appointments every 1-3 months to monitor the patient's response to the medication regimen. - Reinforce the importance of avoiding recreational drug use due to potential neurotoxicity and interactions with prescribed medications. Plan Of Treatment Next Appt Details Provider Name:Juani Velasquez , 11/24/2025 08:15:00 AM, [address], [address], [place], [address], Insurance Providers Payer Name Payer Address Payer Phone Subscriber Number Group Number Insured Name Patient Relationship to Insured Coverage Start Date Coverage End Date Medicare-De Medicare [address] [place] [phone] [id number] MEANSANA Self - patient is the insured [facility] [employer] Medicare Supplement [address] [address] [place] [address] [id number] MEANS, ANA Self - patient is the insured Medical (General) History Medical History History ICD Code Problems: Generalized anxiety disorder Mild recurrent major depression HTN GERD
--- OUTSIDE RECORDS SUMMARY | 2025-07-23 00:52 | XMS_ITS | Clinical Summary ---
Author Organization [facility] Address [address] [place] [address] Phone Care Team Providers Care Director Patient Accounting Name Role Phone Jessa Abbasi DO Primary Care Provider [phone] Buddy Finn MD Unavailable [phone] Allergies No known active allergies Medications ALPRAZolam (XANAX) 0.5 mg tablet Take 1 tablet (0.5 mg total) by mouth daily as needed 2 01/21/2019 Active fenofibrate (TRIGLIDE) 160 mg tablet Take 1 tablet (160 mg total) by mouth daily 11 01/19/2019 Active venlafaxine XR (EFFEXOR-XR) 150 mg 24 hr capsule Take 1 capsule (150 mg total) by mouth every morning 5 01/21/2019 Active lisinopriL (PRINIVIL,ZESTR IL) 5 mg tablet Take 1 tablet (5 mg total) by mouth daily 05/02/2021 Active omeprazole (PriLOSEC) 20 mg capsule Take 1 capsule (20 mg total) by mouth daily 02/14/2024 Active metoprolol succinate (KAPSPARGO) 50 mg capsule,sprinkl e,ER 24hr extended release capsule 50 mg 07/17/2022 Act eddi Active Problems Problem Noted Date Diagnosed Date Neutropenia 01/28/2019 Encounters Date Type Department Care Team Description 04/29/2025 8:45 AM CDT Office Visit [facility] Medicine Physicians [facility] Oncology [address] [place] [address] [address] [place] [address] Buddy Finn MD Other neutropenia (Primary Dx) 04/29/2025 8:15 AM CDT Lab [facility] at [address] [address] Other neutropenia from Last 3 Months Immunizations Immunization Administration Dates Next Due Influenza, Unspecified 08/06/2018 Pfizer SARS-CoV-2 Monovalent Vaccination (12+ Yrs) PURPLE 02/15/2022,01/06/2021,12/16/2020 Surgical History Surgery Date Site/Laterality Comments COLONOSCOPY Medical History Medical History Date Comments Neutropenia Social History Tobacco Use Types Packs/Day Years Used Date Smoking Tobacco: Never Smokeless Tobacco: Never Alcohol Use Standard Drinks/Week Comments Yes 0 (1 standard drink = 0.6 oz pur e alcohol) rare Comments Unknown Sex and Gender Information Value Date Recorded Sex Assigned at Not on file 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 Gender Identity Not on file Sexual Orientation Not on file Obstetrics History Last Filed Vital Signs Vital Sign Reading Time Taken Comments Blood Pressure 112/72 04/29/2025 8:30 AM CDT Pulse 59 04/29/2025 8:30 AM CDT Temperature 36.3 C (97.3 F) 04/29/2025 8:30 AM CDT Respiratory Rate 16 04/29/2025 8:30 AM CDT Oxygen Saturation 99% 04/29/2025 8:30 AM CDT Inhaled Oxygen Concentration - - Weight 65.4 kg (144 lb 2.9 oz) 04/29/2025 8:30 A M CDT Height 163 cm (5' 4.17) 04/29/2025 8:30 AM CDT Body Mass Index 24.62 04/29/2025 8:30 AM CDT Plan of Treatment Health Maintenance Due Date Last Done Comments Breast Cancer Screening-Mammogram 1956 Colon Cancer Screening-Colonoscopy 1955 Depression Screening 1956 Fall Risk Assessment 1956 Hepatitis C Screening 1956 Osteoporosis Screening-Bone Density Scan 1956 Hepatitis B Screening 1974 Zoster Vaccine (1 of 2) 01/24/2021 11/29/2020, 09/06 Well Visit 65+ 2021 Pneumococcal vaccine 65+ (2 of 2 - PPSV23, PCV20, or PCV21) 06/08/2021 04/13/2021 Covid-19 Vaccine (5 - 2024-2 6 season) 2025 02/15/2022, 07/29/2021, 01/06/2021, Additional history exists Influenza Vaccine (#1) 2025 , 08/06/2018, 07/23/2013 DTaP/Tdap/Td Vaccine (2 - Td or Tdap) 11/04/2030 11/04/2020 Procedures Procedure Name Priority Date/Time Associated Diagnosis Comments EGFR Routine 04/29/2025 8:10 AM CDT Other neutropenia DIFFERENTIAL AUTO Routine 04/29/2025 8:1 0 AM CDT Other neutropenia CBC WITH AUTO DIFFERENTIAL Routine 04/29/2025 8:10 AM CDT Other neutropenia COMPREHENSIVE METABOLIC PANEL Routine 04/29/2025 8:10 AM CDT Other neutropenia from Last 3 Months Results * eGFR (04/29/2025 8:10 AM CDT) eGFR 61 >=60 mL/min/1. 73 m2 Comment: Interpretive Data Reference Interval Normal >/= 90 mL/min/1.73m2 Mildly decreased* 60 - 89 mL/min/1.73m2 Mildly to moderately decreased 45 - 59 mL/min/1.73m2 Moderately to severely decreased 30 - 44 mL/min/1.73m2 Severely decreased 15 - 29 mL/min/1.73m2 Kidney Failure < 15 mL/min/1.73m2 *Relative to young adult level Estimated glomerular filtration rate is determined by the 2020 CKD-EPI equation recommended by the National Kid[employer] (A Unifying Approach to GFR Estimation: Recommendations of the NKF-ASK Task Force on Reassessing the Inclusion of Race in Diagnosing Kidney Disease, JASN 2020). The CKD-EPI equation should not be used for patients with unstable renal function and has not been validated in children and those over 70. Current interpretive data was last reviewed 2021. Testing performed by: [address] [address] Blood 04/29/2025 8:10 AM CDT 04/29/2025 8:13 AM CDT Buddy Finn MD LAB BLOOD ORDERABLES Fi nal Result [facility] [address] [facility] Department [place] [address] * (ABNORMAL) Differential, auto (04/29/2025 8:10 AM CDT) Neutrophil abs 1.42(L) 1.50 - 6.50 K/cumm Comment:Testing performed by : [address] [address] Imm gran abs 0.01 0.00 - 0.10 K/cumm [facility] Comment:Testing performed by : [address] [address] Lymphocyte abs 1.24 0.80 - 3.30 K/cumm [facility] Comment:Testing performed by : [address] [address] Monocyte abs 0.39 0.20 - 0.80 K/cumm [facility] Comment:Testing performed by : [address] [address] Eosinophil abs 0.03 0.00 - 0.50 K/cumm [facility] Comment:Testing performed by : [address] [address] Basophil abs 0.01 0.00 - 0.10 K/cumm [facility] Comment:Testing performed by : [address] [address] Neutrophil pct 45.8 % [facility] Comment: Interpretive Data Percent cell count reference ranges are not reported, since discordance with absolute values may lead to misinterpretation of CBC data. Current Interpretive Data was last revised on 2018. Testing performed by: [address] [address] Imm gran pct 0.3 % [facility] Comment: Interpretive Data Percent cell count reference ranges are not reported, since discordance with absolute values may lead to misinterpretation of CBC data. Current Interpretive Data was last revised on 2018. Testing performed by: [address] [address] Lymphocyte pct 40.0 % [facility] Comment: Interpretive Data Percent cell count reference ranges are not reported, since discordance with absolute values may lead to misinterpretation of CBC data. Current Interpretive Data was last revised on 2018. Testing performed by: [address] [address] Monocyte pct 12.6 % [facility] Comment: Interpretive Data Percent cell count reference ranges are not reported, since discordance with absolute values may lead to misinterpretation of CBC data. Current Interpretive Data was last revised on 2018. Testing performed by: [address] [address] Eosinophil pct 1.0 % [facility] Comment: Interpretive Data Percent cell count reference ranges are not reported, since discordance with absolute values may lead to misinterpretation of CBC data. Current Interpretive Data was last revised on 2018. Testing performed by: [address] [address] Basophil pct 0.3 % [facility] Comment: Interpretive Data Percent cell count reference ranges are not reported, since discordance with absolute values may lead to misinterpretation of CBC data. Current Interpretive Data was last revised on 2018. Testing performed by: [address] [address] Blood 04/29/2025 8:10 AM CDT 04/29/2025 8:13 AM CDT us Buddy Finn MD LAB BLOOD ORDERABLES Fi nal Result [facility] [address] [facility] Department of Laboratories [place], [place] [id number] * (ABNORMAL) CBC with auto differential (04/29/2025 8:10 AM CDT) WBC 3.10(L) 3.80 - 9.90 K/cumm Comment:Testing performed by : [address], [address] Hgb 11.8(L) 11.9 - 15.5 g/dL [facility] Comment:Testing performed by : [address] [address] Hct 35.6 35.6 - 45.5 % [facility] Comment:Testing performed by : [address], [address] Plt 258 150 - 400 K/cumm [facility] Comment:Testing performed by : [address], [address] MPV 10.4 9.1 - 12.3 fL [facility] Comment:Testing performed by : [address], [address] RBC 3.84(L) 3.90 - 5.20 M/cumm [facility] Comment:Testing performed by : [address], [address] MCV 92.7 81.3 - 96.4 fL [facility] Comment:Testing performed by : [address], [address] MCH 30.7 27.1 - 33.3 pg [facility] Comment:Testing performed by : [address] [address] MCHC 33.1 32.3 - 35.7 g/dL [facility] Comment:Testing performed by : [address], [address] RDW CV 12.7 11.1 - 14.9 % [facility] Comment:Testing performed by : [address], [address] RDW SD 43.1 35.7 - 48.1 fL [facility] Comment:Testing performed by : [address], [address] NRBC abs 0.00 0.00 - 0.01 K/cumm [facility] Comment:Testing performed by : [address], [address] ANC Prelim 1.42(L) 1.50 - 6.50 K/cumm [facility] Comment: Interpretive Data The rapid ANC is a preliminary automated count and may vary from the final ANC (Neut Abs) reported in the WBC differential that follows. Current interpretive data was last revised 2025. Testing performed by: [address] [address] Blood 04/29/2025 8:10 AM CDT 04/29/2025 8:13 AM CDT us Buddy Finn MD LAB BLOOD ORDERABLES Fi nal Result [facility] Department [place] [address] * Comprehensive metabolic panel (04/29/2025 8:10 AM CDT) Sodium 139 135 - 145 mmol/L Comment:Testing performed by : [address] [address] Potassium, pl 4.2 3.3 - 4.9 mmol/L [facility] Comment:Testing performed by : [address] [address] Chloride 104 97 - 110 mmol/L [facility] Comment:Testing performed by : [address] [address] CO2 25 22 - 32 mmol/L [facility] Comment:Testing performed by : [address] [address] Anion gap 10 2 - 15 mmol/L [facility] Comment:Testing performed by : [address] [address] BUN 24 6 - 25 mg/dL [facility] Comment:Testing performed by : [address] [address] Creatinine 1.00 0.60 - 1.10 mg/dL [facility] Comment:Testing performed by : [address] [address] Glucose 102 70 - 199 mg/dL [facility] Comment: Interpretive Data Fasting glucose >/= 126 mg/dl is diagnostic for diabetes. Fasting is defined as no caloric intake for at least 8 hours. Fasting glucose between 100 mg/dl to 125 mg/dl is diagnostic of prediabetes. In a patient with classic symptoms of hyperglycemia or hyperglycemic crisis, a random glucose >/= 200 mg/dl is diagnostic for diabetes. In the absence of unequivocal hyperglycemia, results should be confirmed by repeat testing. The classification and Diagnosis of Diabetes Diabetes Care 202; 46: S19-S40. Current interpretive data was last revised 2022. Testing performed by: [address] [address] Calcium 9.3 8.5 - 10.3 mg/dL [facility] Comment:Testing performed by : [address] [address] Bilirubin, total 0.2 0.1 - 1.2 mg/dL [facility] Comment:Testing performed by : [address] [address] Protein, pl 6.6 6.5 - 8.5 g/dL [facility] Comment:Testing performed by : [address] [address] Albumin 4.1 3.5 - 5.0 g/dL [facility] Comment:Testing performed by : [address] [address] Alk phos 86 40 - 130 Units/L [facility] Comment:Testing performed by : [address] [address] ALT 20 7 - 45 Units/L [facility] Comment:Testing performed by : [address] [address] AST 25 10 - 45 Units/L [facility] Comment:Testing performed by : [address] [address] Blood 04/29/2025 8:10 AM CDT 04/29/2025 8:13 AM CDT us Buddy Finn MD LAB BLOOD ORDERABLES Fi nal Result [facility] [address] [facility] [place] [address] from Last 3 Months Insurance MEDICARE T SENIOR SUPPLEMENT MEDICARE AETNA AETNA SENIOR SUPPLEMENT Care Teams Director Patient Accounting Relationship Specialty Start Date End Date Jessa Abbasi DO PCP - General Family Medicine 06/06/21 Buddy Finn MD Medical Oncologist/Clarifier Operator Helper Hematology and Oncology 04/29/25
--- OUTSIDE RECORDS SUMMARY | 2025-07-23 00:52 | XMS_ITS | Encounter Summary ---
Author Organization [facility] Health Address [address] [facility] [place] [address] Care Team Providers Care Aircraft Engine Assembler Name Role Phone Pa Damian MD Primary Care Provider [phone] Encounter Details Date Type Department Care Team (Late st Contact Info) Description 06/11/2024 Lab Requisition [facility] - DermPath Lab [address] [facility] [place] [address] Rafael Pascal MD [address] [place] [address] Social History Tobacco Use Types Packs/Day Years [...] Priority Date/Time Associated Diagnosis Comments DERMATOPATHOLOGY Routine 06/10/2024 3:33 AM CDT documented in this encounter Results * DERMATOPATHOLOGY (06/10/2024 3:33 AM CDT) Case Report Dermatopathology Report Case: [id number] Authorizing Provider: Rafael Pascal MD Collected: 06/10/2024 03:33 AM Ordering Location: [facility] - Received: 06/11/2024 01:44 PM DermPath Lab Pathologist: Conchis Guo MD Specimen: Skin, right volar index distal phalange 2:05 PM CDT DERMATOPATHOLOGY LABORATORY Final Diagnosis Specimen A. 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 The specimen consists of a shave biopsy measuring 5x4x4 mm. Jar 0. 4 2:05 PM CDT DERMATOPATHOLOGY LABORATORY Microscopic Description Specimen A. SKIN, right volar index distal phalange: The epidermis is acanthotic and hyperkeratotic and surrounds a dermis with thick collagen bundles oriented predominantly in a vertical fashion. There are scattered stellate fibroblasts. COMMENT: Included in this group are: acquired digital fibrokeratoma, acquired periungual fibrokeratoma, garlic clove fibroma, and subungual/periungua l fibromas of tuberous sclerosis. 4 2:05 PM CDT DERMATOPATHOLOGY LABORATORY Disclaimer An external and internal positive and negative controls are appropriate for the histochemical, immunohistochemical and immunofluorescence stain(s) in this case (if any), except where stated explicitly. The performance characteristics of the stain(s) cited in this report were developed and its performance characteristic determined by the Dermatopathology Laboratory at [facility], directed by Dr. Vivian Guo. These tests need not be, and therefore are not, approved by the [place] Food and Drug Administration. The tests are used for clinical purposes. Billing Codes Specimen Charges Stain Charges 63638 1 4 2:05 PM CDT DERMATOPATHOLOGY LABORATORY Embedded Images 4 2:05 PM CDT DERMATOPATHOLOGY LABORATORY Pathology/Cytolo gy TISSUE SPECIMEN FROM SKIN / Unknown 06/10/2024 3:33 AM CDT 06/11/2024 1:44 PM CDT Rafael Pascal MD LAB - PATHOLOGY/CYTOLOGY ORD ERABLES Final Result DERMATOPATHOLOGY LABORATORY [facility] - Department of Dermatology [facility] Specialized Medicine [address] [facility], [address] [phone] documented in this encounter Visit Diagnoses Not on filedocumented in this encounter Care Teams Aircraft Engine Assembler Relationship Specialty Start Date End Date Pa Damian MD [address] [place] [address] PCP - General Family Medicine 03/24/17 documented as of this encounter
--- OUTSIDE RECORDS SUMMARY | 2025-07-23 00:52 | XMS_ITS | Encounter Summary ---
Author Organization [facility] Address [address] [place] [address] Care Team Providers Care Watershed Program Manager Name Role Phone Pa Damian MD Primary Care Provider [phone] Encounter Details Date Type Department Care Team (Latest Contact Info) Description 11/07/2004 Inpatient Historical HIS PATIENT IN A BED Farhad Arteaga MD [address] [facility] [address] [place] [address] DEPRESS PSYCHOSIS-UNSPEC (Primary Dx) Social History Tobacco Use Types Packs/Day Years Used Date Smoking Tobacco: Never Assessed Comments Unknown Sex and Gender Information Value Date Recorded Sex Assigned at Not on file 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
--- OUTSIDE RECORDS SUMMARY | 2025-07-23 00:52 | XMS_ITS | Data Portability ---
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 Patient will come back in a year unless there are new symptoms. Not available 08/30/2020 09:26:24 03/01/2023 03/01/2023 Annual gynecological exam performed. Patient will come back in a year unless there are new symptoms. Not available 03/01/2023 09:42:04 03/02/2025 03/02/2025 Annual gynecological exam performed. Patient will come back in a year unless there are new symptoms. Not available 03/02/2025 09:11:41 Plan of Treatment Reminders Order Date Submit Date Provider Last Modified By Organization Details Last Modified Time Details Appointments None recorded. Lab None recorded. Referral None recorded. Procedures None recorded. Surgeries None recorded. Imaging DEXA, axial skeleton + vertebral fracture assessment 2024 025 AMADEO [facility], [address], [place], [address], 04:05:15 Medication Orders None recorded. Patient TargetsNo targets recorded. Patient Instructions Encounter Date Encounter Id Patient Instructions Last Modified By Organization Details Last Modified Time 08/30/2020 [id number] [email or web address] Not available 09:57:55 Reason for Referral None Reported. Results Created Date Observation Date Name Description Value Unit Range Abnormal Flag Note LastModifiedBy Organization Detail LastModifiedTime 10/30/19 21 MAMMO , scree shy, bilat eral No observ ation record ed. AMADEO Not Available 2020 14:13:09 05/28/20 25 05/22/2025 DEXA, axial skele ton + verte bral fract ure asses sment No observ ation record ed. [facility] [address], [place], [address], 06/09/2025 15:24:53 Result Notes None recorded. Problems Name Problem SNOMED Code Status Onset Date Resolution Date Notes Provider Name and Address Organization Details Recorded Time Screening for malignant neoplasm of colon Active 2010 Special screening for malignant neoplasms, colon;Prac allan ID: [id number] Not Available [facility] 0 21:54:04 Adult health examinatio n Active 2013 Routine general medical examinatio n at a health care facility;P gerard ID: 0001 Not Available [facility] 0 21:54:03 Specialize d medical examinatio n Active 2013 Routine gynecologi meghna examinatio n;Practice ID: 0001 Not Available [facility] 0 21:54:03 Screening for malignant neoplasm of cervix Active 2013 Pap Smear;Prac allan ID: 0001 Not Available [facility] 0 21:54:03 [employer] a [id number] Active 2014 Proteinuri a;Practice ID: 0001 Not Available [facility] 0 21:54:03 Evaluation finding Active 2016 Hematuria, unspecifie d;Practice ID: 0001 Not Available [facility] 0 21:54:[address] Concept Active 2016 Encounter for general adult medical exam w abnormal findings;P gerard ID: 0001 Not Available [facility] 0 21:54:[address] Concept Active 2017 Encntr for rn obgyn exam (general) (routine) w/o abn findings;P kayatice ID: 0001 Not Available [facility] 0 21:54:02 Screening for malignant neoplasm of rectum Active 2017 Encounter for screening for malignant neoplasm of rectum;Pra ctice ID: 0001 Not Available [facility] 0 21:54:[address] Concept Active 2018 Encntr for general adult medical exam w/o abnormal findings;Armando gee ID: 0001 Not Available [facility] 0 21:54:03 Problem Notes None recorded. Procedures Surgical History Date Name Laterality Status Provider Name and Address Organization Details Recorded Time 08/30/20 Date of Last Pap Smear completed Ashly Berg [facility] 03/01/2023 09:43:22 Hysteroscopy completed Deena Hernández [facility] 08/30/2020 09:27:45 Colonoscopy completed Deena [facility] 08/30/2020 09:27:51 Imaging Results None recorded. Procedure Notes None recorded. Medical Equipment None Reported. Allergies No known drug allergies Medications Name Sig Start Date Stop Date Status Note LastModified by Organization Details LastModified Time metoprolo l succinate ER 50 mg tablet,ex tended release 24 hr TAKE 1 TABLET BY MOUTH ONCE DAILY active Not Available Not Available No t Available vitamin E 100 unit capsule 02/28 completed [facility] ed Elsewher e: Yes Loca tion: [facility] odify By: jose r meneses DateTime : 02/28/20 09:32:49 PM Not Available Not Available Not Available venlafaxi ne ER 150 mg capsule,e xtended release 24 hr TAKE 1 CAPSULE BY MOUTH ONCE DAILY active Not Available Not Available No t Available alprazola m 0.5 mg tablet TAKE 1 TABLET BY MOUTH ONCE DAILY NEEDED 03/02 completed Not Available Not Available Not Available omeprazol e 20 mg capsule,d elayed release TAKE 1 CAPSULE BY MOUTH ONCE DAILY active Not Available Not Available No t Available lisinopri l 5 mg tablet TAKE 1 TABLET BY MOUTH ONCE DAILY active Not Available Not Available No t Available Vitamin D2 1,250 mcg (50,000 unit) capsule take 1 capsule by oral route every week 02/28 completed [facility] ed Elsewher e: Yes Loca tion: [facility] odify By: jose r meneses DateTime : 02/28/20 12 09:32:49 PM Not Available Not Available Not Available Stanback Headache Powder 650 mg oral packet 02/28 completed Prescrib ed Elsewher e: Yes Loca tion: [facility] odify By: jose r meneses DateTime : 02/28/20 12 09:32:49 PM Not Available Not Available Not Available eletripta n 40 mg tablet TAKE 1 TABLET BY MOUTH EVERY DAY NEEDED 08/30 completed Not Available Not Available Not Available Relpax 20 mg tablet take 1 tablet by oral route ; if headache returns, the dose may be repeated after 2 hours, but nomore than two doses should be given within a 24-hour period. 08/28 completed Prescrib ed Elsewher e: Yes Loca tion: [facility] odify By: petty nessuntjeanne DateTime : 04/14/20 14 10:30:00 AM Not Available Not Available Not Available Tricor 48 mg tablet take 1 tablet by oral route every day 04/14 completed Prescrib ed Elsewher e: Yes Loca tion: [facility] odify By: kinga shane DateTime : 02/29/20 12 10:30:00 AM Not Available Not Available Not Available fenofibra te 160 mg tablet TAKE 1 TABLET BY MOUTH ONCE DAILY active Not Available Not Available No t Available Lipofen 50 mg capsule take 1 capsule by oral route every day with a meal 03/01 completed Prescrib ed Elsewher e: Yes Loca tion: [facility] odify By: kinga shane DateTime : 04/14/20 14 10:30:00 AM Not Available Not Available Not Available fenofibra te 40 mg tablet take 2 tablet by oral route every day 03/01 completed Prescrib ed Elsewher e: Yes Loca tion: [facility] odify By: petty meneses DateTime : 08/28/20 19 08:15:00 AM Not Available Not Available Not Available Suprep Bowel Prep Kit 17.5 gram-3.13 gram-1.6 gram oral solution DIRECTED 08/30 completed Not Available Not Available Not Available Fish Oil 100 mg-160 mg-1,000 mg capsule 02/28 completed Prescrib ed Zeke e: Yes Loca tion: [facility] Conchis odtosha By: kinga shane DateTime : 04/14/20 14 10:30:00 AM Not Available Not Available Not Available Afluria Qd (36 mos up)(PF)60 mcg (15 mcg x4)/0.5 mL IM syringe PHARMACI ST ADMINIST ERED IMMUNIZA TION ADMINIST ERED AT TIME OF DISPENSI NG 08/30 completed Not Available Not Available Not Available Vitals Date Recorded Body height Body mass index (BMI) Body weight Systolic And Diastolic Provider Name and Address Organization Details Last Updated DateTime 03/01/2023 162.56 cm 25.7 kg/m2 50436.86 g 116/74 mm[Hg] Ashly Berg [facility] 03/01/2023 09:42:50 Date Recorded Body height Body mass index (BMI) Body weight Systolic And Diastolic Provider Name and Address Organization Details Last Updated DateTime 03/02/2025 162.56 cm 25 kg/m2 40599.77 g 112/73 mm[Hg] Gabrielle Paris [facility] 03/02/2025 09:12:15 Date Recorded Systolic And Diastolic Provider Name and Address Organization Details Last Updated DateTime 08/30/2020 140/82 mm[Hg] Geeta Prescott, [facility]- [address], [place], [address], [facility] 08/30/2020 09:59:59 Date Recorded Body height Body mass index (BMI) Body weight Provider Name and Address Organization Details Last Updated DateTime 08/30/2020 162.56 cm 26.4 kg/m2 19503.22 g Deena Hernández [facility] 08/30/2020 09:38:35 Social History Question Answer Notes LastModified by Organizat ion Details LastModified Time Tobacco Smoking Status Never Smoker Deena Hernández null, [facility] 08/30/2020 09:27:37 In The 14 Days Before Symptom Onset, Have You Had Close Contact With A Laboratory-confirm ed COVID-19 While That Case Was Ill? No Information n ot available 03/01/2023 In The 14 Days Before Symptom Onset, Have You Had Close Contact With A Person Who Is Under Investigation For COVID-19 While That Person Was Ill? No Information not available 03/01/2023 Have You Been To An Area Known To Be High Risk For COVID-19? No Information not available 03/01/2023 Sex: Unknown Functional Status None recorded. Mental Status None recorded. Family History Relationship Description Onset Age of this Age Resolved Age Notes LastModified by Organization Details LastModified Time Sister Seizure disorder [email or web address] Not available 2019 09:27:22 Mother Acute stroke Not availa ble 08/30/2020 09:27:34 Notes:Mother: mini strokes S ister: Seizure disorder Medical History Condition Response Anxiety Disorder Y Acid Reflux (GERD) Y Hypertension Y High Cholesterol Y Gynecological History Statement/Question Response Abnormal Pap Y Date of Last Mammogram Date of Last Colonoscopy Sexually Active? Y Menses Monthly N STIs/STDs N HPV Vaccine N Date of Last Pap Smear 08/30/2020 Sexual Problems? N Current Control Method Menopause LMP Unknown Obstetrics History GPAL:G 0 P 0 0 0 0 Past Encounters Encounter ID Performer Location Encounter Start Date Encounter Closed Date Diagnosis/Indication Diagnosis SNOMED-CT Code Diagnosis ICD10 Code Diagnosis IMO Codes Diagnosis Note [id number] Geeta Prescott [facility] [address] [address] 08/30/2020 09:22:28 08/30/2020 14:17:08 Gynecologic examination 19575411 Z01.419 Take Calcium with Vitamin D 12-1500mg daily. Do monthly self breast exams. It is advised to get annual flu shot in the fall and she could obtain at [facility] or [facility] care clinic. If you haven't received the Tdap vaccine in the last 10 years you should obtain one as well. Have mammogram yearly, bone density every 2-3 years and colonoscop y every 5-10 years depending on findings and history. Engage in daily exercise of low impact aerobic exercise 45-60 minutes 4-5 times weekly. Avoid tobacco and illicit drugs as well as using moderation with alcohol intake less than 1-2 8 oz beverages daily. This lifestyle behavior pattern will lead to less health conditions and longer life span. If BMI greater than 25 weight watchers or dietary consult advised. Questions have been answered. Patient appears to understand instructio ns, but if you have any further questions call or respond to this email Pap/hpv udated. If wnl, can d/c pap unless otherwise indicated. Mammo ordered Dexa due next year Very active & eating well balanced diet. No issues or complaints [id number] [facility] [address] [address] 03/01/2023 09:31:35 03/01/2023 10:08:45 Gynecologic examination [id number] Z01.419 Take Calcium with Vitamin D 12-1500mg daily. Do monthly self breast exams. It is advised to get annual flu shot in the fall and she could obtain at [facility] or [facility] care clinic. If you haven't received the Tdap vaccine in the last 10 years you should obtain one as well. Have mammogram yearly, bone density every 2-3 years and colonoscop y every 5-10 years depending on findings and history. Engage in daily exercise of low impact aerobic exercise 45-60 minutes 4-5 times weekly. Avoid tobacco and illicit drugs as well as using moderation with alcohol intake less than 1-2 8 oz beverages daily. This lifestyle behavior pattern will lead to less health conditions and longer life span. If BMI greater than 25 weight watchers or dietary consult advised. Questions have been answered. Patient appears to understand instructio ns, but if you have any further questions call or respond to this email Pap/hpv USPSTF recommends against screening for cervical cancer in women older than 65yo, those who've had a hysterecto my for non-cancer indication s, & who have had adequate prior screening & are not otherwise at high risk for cervical cancer. STD Screen declinedGe netic Screen discussedC olon Screen UTD PCPDexa Screen UTD PCPRoutine Labs UTD PCPMammo-U TD 11/2022 PCPRTO WWE q2yrs or PRN as PCP can order routine screenings [id number] BRANDON Morocho [facility] [address] [address] 03/02/2025 09:01:41 03/02/2025 10:03:10 Gynecologic examination [id number] Z01.209 [id number] WWEpostmen opausalPap - not indicated todaySTI screen - declinedMa mmogram - UTD/PCPCol on cancer screening - UTDDexa - order givenRouti ne labs - UTD/PCPRTC in 1 yr or sooner if needed Do monthly self breast exams.It is advised to get annual flu shot in the fall and she could obtain at local pharmacy. If you haven't received the Tdap vaccine in the last 10 years you should obtain one as well.Have mammogram yearly, bone density every 2-3 years and stay up to date on colon cancer screening. Engage in regular exercise. Avoid tobacco and illicit drugs. This lifestyle behavior pattern will lead to less health conditions and longer life span. If BMI greater than 25 dietary consult advised.Qu estions have been answered. Screening for osteoporosis [id number] Z13.820 [id number] Health Concerns Section Related Observation LastModified by Organization Detai ls LastModified Time None Recorded Concern Status LastModified by Organization Details LastModified Time None Recorded Advance Directives Directive None Recorded Payers Insurance Date Sequence Insurance Name Policy Number Policy Rae Covered Member ID Rae Member ID Guarantor Name 02/07/2023 1 iMeigu Sunil Means [id number] Nina Means 04/21/2025 2 [employer] (MEDICARE SUPPLEMENT) Nina L Means [id number] Nina Means 03/02/2025 1 [place] Nina L Means [id number] Nina Means Notes Date Note Type Note Provider Name and Address Organization Details Recorded Time 0 text/html Annual GYNReported by PatientHistoryFor history, patient reportsno gynecologic complaints.Genitourinary symptomsFor urinary symptoms, patient reportsno hematuriaandno incontinence. For vulva, patient reportsno genital lesion. For vagina, patient reportsnormal vaginal discharge. For menstrual cycle, (postmenopause).Breast symptomsFor breast, patient reportsno breast pain,no breast lump, andno nipple discharge.ContraceptionFo r current contraception, patient reportssatisfied with current contraception.Endocrine symptomsFor sexual complaints, patient reportsno sexual complaints,no pain during intercourse, andnormal libido. For menopausal symptoms, patient reportsno menopausal symptomsandnormal vaginal lubrication.Psychological symptomsFor psychological symptoms, patient reportsno depression,no anxiety, andno pmdd.Preventative measuresFor preventive measures, patient reportsencourage self breast examination,encourage regular exercise,encourage no tobacco use,encourage regular mammograms starting age 40,needs to schedule mammogram, andup to date on colonoscopy screening(dexa utd due next year). [facility] [address], [place], [address], [facility] 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 For vaginal bleeding, patient reportshistory of menopause having occurredandno history of post menopausal bleeding. For urinary symptoms, patient reportsno hematuria,no incontinence,no nocturia, andno urinary frequency. For vulva, patient reportsno genital lesionandno vulvar atrophy. For vagina, patient reportsnormal vaginal dischargeandno vaginal atrophy.Breast symptomsFor breast, patient reportsno breast lump,no nipple discharge, andno breast pain.Psychological symptomsFor sexual complaints, patient reportsno sexual complaints. For psychological symptoms, patient reportsno depressionandno anxiety.Preventative measuresFor preventive measures, patient reportsencourage regular mammograms starting age 40,encourage self breast examination,encourage regular exercise,encourage no tobacco use,mammogram performed within the past year, andhistory of recent colonoscopy. Geeta Prescott [facility]- [address], [place], [address], [facility] 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 For vaginal bleeding, patient reportshistory of menopause having occurredandno history of post menopausal bleeding. For urinary symptoms, patient reportsno hematuria,no incontinence,no nocturia, andno urinary frequency. For vulva, patient reportsno genital lesionandno vulvar atrophy. For vagina, patient reportsnormal vaginal dischargeandno vaginal atrophy.Breast symptomsFor breast, patient reportsno breast lump,no nipple discharge, andno breast pain.Psychological symptomsFor sexual complaints, patient reportsno sexual complaints. For psychological symptoms, patient reportsno depressionandno anxiety.Preventative measuresFor preventive measures, patient reportsencourage regular mammograms starting age 40,encourage self breast examination, andencourage regular exercise.69yo wwepostmenopausallast pap 2019 - wnlMammogram last olonoscopy UTDdexa - around 5yrs ago per pt Jeannine escalante, [place] [facility] 05/21/2025 14:22:14 OBGyn Episode No OBEpisode recorded.
[2025-07-23 10:17] VITALS: BP 131/87; PULSE 119; RESP 16; TEMP 35.9; O2SAT 99; BMI 24.3
[2025-07-23] MEDS: LACTATED RINGERS 1,000 ML 150 ML IV CONT (10:28)
--- NOTE | 2025-07-23 11:07 | WPDANESEPPF ---
Anes - Initial Pre Proc Eval Procedure: Operation Date: 07/23/25 11:30 Proposed Procedures p Screening Colonoscopy - Milton Samano MD Date/Time: 07/23/25 11:07 Surgeon: Milton Samano MD Pre Op Diagnosis: Personal history of colon polyps, unspecified Patient Data Age: 70 Gender: F Height: 1.63 m Weight: 64.3 kg Last Vital Signs Temp 35.9 C L 07/23/25 10:17 Pulse 119 H 07/23/25 10:17 Resp 16 07/23/25 10:17 BP 131/87 07/23/25 10:17 Pulse Ox 99 07/23/25 10:17 Allergies Allergy/AdvReac Type Severity Reaction Status Date / Time No Known Allergies Allergy Verified 07/13/25 12:29 Home Medications ?Medication ?Instructions ?Recorded ?Confirmed ?Type multivit with minerals-iron 18 1 tablet PO DAILY 10/01/19 07/23/25 History mg-folic ac 400 mcg-vit K 25 mcg tablet (Adults Multivitamin) cholecalciferol (vitamin D3) 50 50 mcg PO DAILY 09/04/23 07/23/25 History mcg (2,000 unit) tablet venlafaxine 150 mg 150 mg PO DAILY 09/04/23 07/23/25 History capsule,extended release 24 hr ascorbic acid (vitamin C) 500 mg 500 mg PO DAILY 12/10/24 07/23/25 History capsule metoprolol succinate 50 mg 50 mg PO DAILY #90 tabs 02/16/25 07/23/25 Rx tablet,extended release 24 hr lisinopril 5 mg tablet See Rx Instructions .Route 03/24/25 07/23/25 Rx .COMPLEX #90 tabs omeprazole 20 mg capsule,delayed 20 mg PO DAILY #90 caps 04/20/25 07/23/25 Rx release rosuvastatin 10 mg tablet 10 mg PO DAILY 07/13/25 07/23/25 History fenofibrate 160 mg tablet 160 mg PO DAILY #90 tabs 07/20/25 Rx Patient hx anesthesia problems: none Family hx anesthesia problems: none Results Review: All pre-operative results and documents have been reviewed as part of the pre-operative evaluation. [facility] Past Medical History Medical History History of mumps History of chicken pox History of measles Hepatitis C antibody test negative (01/02/07) Encounter for dual-energy x-ray absoptiometry review (~05/2013) Hyperlipidemia History of bone density study (~05/28/13) Surgical History Surgical History History of dilatation and curettage (~11/22/09) Family History Family History Father Family history of elevated blood lipids Family history of coronary artery disease Bipolar 1 disorder Mother Hypertension Sibling Bipolar 1 disorder Sibling No chronic problems Social History Social History Smoking status: Never smoker Alcohol intake: current Drinks per week: 1 Substance use: never Substance use type: does not use Lack of Transportation: No Lack of Food: Never True Current Housing: I Have Housing Concerned About Future Housing: No Difficulty Paying Gas/Electric Bills: No Difficulty Paying for Meds: No Currently Unemployed: No Education: Bachelor's Degree Difficulty w/ Childcare or Family Care: No Living arrangements: with family Spiritual care concerns: No Anes - Eval Final PreProcedure Day of Procedure 07/23/25 11:07 Patient weight: normal Heart: regular rate and rhythm and tachycardia Lungs: clear to auscultation Airway: Mallampati scale class 1 Neurological: alert and oriented Last oral intake: >/= 8 hours ASA classification: III Emergent: no Anesthetic plan: proceed Anesthesia type and monitoring: general GIVS and standard monitoring Results Review: All pre-operative results and documents have been reviewed as part of the pre-operative evaluation. Informed Consent: The patient's anesthetic plan and its attendant risks and benefits were discussed with the patient/family/POA. Questions were solicited and answers provided to the satisfaction of the patient/family/POA.
--- NOTE | 2025-07-23 11:09 | PM.IMHP ---
H&P: HPI History of Present Illness Date/Time: 07/23/25 11:09 Chief Complaint: History of colon polyps Narrative: The patient has a history of colonic polyps, the last colonoscopy was in September 2024, however the prep was suboptimal and she was advised to return a year later with 2 day prep. She is here today for colonoscopy. Review of Systems Review of Systems: All systems reviewed & are unremarkable except as noted in HPI and below PMFSH Past Medical History Medical History History of mumps History of chicken pox History of measles Hepatitis C antibody test negative (01/02/07) Encounter for dual-energy x-ray absoptiometry review (~05/2013) Hyperlipidemia History of bone density study (~05/28/13) Surgical History Surgical History History of dilatation and curettage (~11/22/09) Family History Family History Father Family history of elevated blood lipids Family history of coronary artery disease Bipolar 1 disorder Mother Hypertension Sibling Bipolar 1 disorder Sibling No chronic problems Social History Social History Smoking status: Never smoker Alcohol intake: current Drinks per week: 1 Substance use: never Substance use type: does not use Lack of Transportation: No Lack of Food: Never True Current Housing: I Have Housing Concerned About Future Housing: No Difficulty Paying Gas/Electric Bills: No Difficulty Paying for Meds: No Currently Unemployed: No Education: Bachelor's Degree Difficulty w/ Childcare or Family Care: No Living arrangements: with family Spiritual care concerns: No Meds Home Medications and Allergies Home Medications ?Medication ?Instructions ?Recorded ?Confirmed ?Type multivit with minerals-iron 18 1 tablet PO DAILY 10/01/19 07/23/25 History mg-folic ac 400 mcg-vit K 25 mcg tablet (Adults Multivitamin) cholecalciferol (vitamin D3) 50 50 mcg PO DAILY 09/04/23 07/23/25 History mcg (2,000 unit) tablet venlafaxine 150 mg 150 mg PO DAILY 09/04/23 07/23/25 History capsule,extended release 24 hr ascorbic acid (vitamin C) 500 mg 500 mg PO DAILY 12/10/24 07/23/25 History capsule metoprolol succinate 50 mg 50 mg PO DAILY #90 tabs 02/16/25 07/23/25 Rx tablet,extended release 24 hr lisinopril 5 mg tablet See Rx Instructions .Route 03/24/25 07/23/25 Rx .COMPLEX #90 tabs omeprazole 20 mg capsule,delayed 20 mg PO DAILY #90 caps 04/20/25 07/23/25 Rx release rosuvastatin 10 mg tablet 10 mg PO DAILY 07/13/25 07/23/25 History fenofibrate 160 mg tablet 160 mg PO DAILY #90 tabs 07/20/25 Rx Allergies Allergy/AdvReac Type Severity Reaction Status Date / Time No Known Allergies Allergy Verified 07/13/25 12:29 Vital Signs Vital Signs - 24 hr 07/23/25 10:17 Temperature 96.7 F L Pulse Rate 119 H Respiratory Rate 16 Blood Pressure 131/87 Pulse Oximetry 99 Exam Const: General: cooperative and healthy appearing Resp: Effort & Inspection: normal respiratory effort and able to speak in complete sentences Auscultation: clear to auscultation bilaterally Cardio: Rate: regular rate Rhythm: regular rhythm GI: Inspection: normal to inspection GI Palp: No No hepatosplenomegaly present Auscultation: normal bowel sounds Rectal Exam: deferred Skin: General skin exam: normal color Psych: Appearance: grossly normal Mental Status: mental status grossly normal Assessment and Plan Assessment and plan (1) Hx of colonic polyps: Code(s): Z86.0100 - Personal history of colon polyps, unspecified Status: Acute Assessment and Plan: The patient is deemed a good candidate for the procedure. Consent signed. Will proceed.
[2025-07-23 11:29] VITALS: BP 109/72; PULSE 99; RESP 20; O2SAT 95
--- NOTE | 2025-07-23 11:29 | S_PTH ---
PATIENT: Nina Patel LOC: [facility] U#:[id number] AGE/SX: 70/F ROOM: RE07/23/[address]: Milton Samano MD : [id number] BED: DIS: 07/23/2025 SPEC #: [id number] RECD: 07/23/25 13:15 STATUS: CRISTA REQ #: [id number] MASON: 07/23/25 11:[address]: Milton Samano DEPT: [facility] Surgical RECD BY: Sandie Fay MLT, ([facility]) ENTERED: 07/23/25 13:15 SP TYPE: Surgical OTHR DR: Jessa Abbasi DO Tissues: A - Colon Biopsy Procedures: Hematoxylin and Eosin Stain Gross and Microscopic Level 4
[2025-07-23 11:39] VITALS: BP 113/77; PULSE 96; RESP 21; O2SAT 95
[2025-07-23 11:49] VITALS: BP 118/74; PULSE 94; RESP 29; O2SAT 98
== END 2025-07-23 12:01 | disposition home or self-care (01) ==
PROVIDERS: PCP Family Medicine; Referring Provider Internal Medicine Gastroenterology; Visit Provider Internal Medicine Gastroenterology
PROC: 0DJD8ZZ Inspection of Lower Intestinal Tract, Via Natural or Artificial Opening Endoscopic (ICD-10-PCS; CPT 45378; principal; 2025-07-23 11:30)
DX: K52.9 Noninfective gastroenteritis and colitis, unspecified (principal); Z86.0100 Personal history of colon polyps, unspecified
CPT/HCPCS: 45380; 88305; J2003; J2704; J7120

== ENCOUNTER 2025-08-04 12:48 | Outpatient (CLI) | payer MEDICARE, SELFPAY ==
--- NOTE | ~2025-08-04 | MM_ITS ---
EXAMINATION: MM screening ángel BI w valencia HISTORY: Screening TECHNIQUE: Craniocaudal and mediolateral oblique 3-D tomosynthesis images were obtained and synthetic 2-D images were generated. CAD analysis was submitted and interpreted. COMPARISON: 12/09/2022 BREAST PARENCHYMAL COMPOSITION: The breasts are heterogeneously dense, which may obscure small masses. FINDINGS: There is no evidence of suspicious mass, calcification, or architectural distortion to suggest malignancy. There has been no suspicious interval change. IMPRESSION: 1. No mammographic evidence of malignancy. Recommend routine screening mammography in one year. BI-RADS Category 2: Benign finding(s) Reviewed, dictated and finalized at location Q. IMPRESSION: 1. No mammographic evidence of malignancy. Recommend routine screening mammogra phy in one year. BI-RADS Category 2: Benign finding(s)
--- OUTSIDE RECORDS SUMMARY | 2025-08-04 14:27 | XMS_ITS | Encounter Summary ---
Author Organization [facility] Address [address] [place] [address] Care Team Providers Care Dump Grader Name Role Phone Pa Damian MD Primary Care Provider [phone] Encounter Details Date Type Department Care Team (Late st Contact Info) Description 06/11/2019 Lab Requisition [facility] DermPath Lab [address] [place] [address] Rafael Pascal MD [address] [place] [id number] Social History Tobacco Use Types Packs/Day Years [...] AM CDT) Case Report Dermatopathology Report Case: [id number] Authorizing Provider: Rafael Pascal MD Collected: 06/10/2019 12:00 AM Ordering Location: [facility] DermPath Lab Received: 06/11/2019 11:16 AM Pathologist: [...] characteristic determined by the Dermatopathology Laboratory at [facility], directed by Dr. Vivian Guo. These tests need not be, and therefore are not, approved by the [place] Food and Drug Administration. The tests are used for clinical purposes. Billing Codes Specimen Charges Stain Charges 24401 1 96064 1 9 4:04 PM CDT DERMATOPATHOLOGY LABORATORY Embedded Images 4:04 PM CDT DERMATOPATHOLOGY LABORATORY Pathology/Cytolog y TISSUE SPECIMEN FROM SKIN / Unknown 06/10/2019 06/11/2019 11:16 AM CDT Rafael Pascal MD LAB - PATHOLOGY/CYTOLOGY ORD ERABLES Final Result DERMATOPATHOLOGY LABORATORY [facility] - Department of Dermatology [address], [address]th [place] [address], [facility] [phone] documented in this encounter Visit Diagnoses Not on filedocumented in this encounter Care Teams Dump Grader Relationship Specialty Start Date End Date Pa Damian MD [address] [place] [address] PCP - General Family Medicine 03/24/17 documented as of this encounter
--- OUTSIDE RECORDS SUMMARY | 2025-08-04 14:27 | XMS_ITS | Clinical Summary ---
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
--- OUTSIDE RECORDS SUMMARY | 2025-08-04 14:27 | XMS_ITS | Encounter Summary ---
Author Organization [employer] Address 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
--- OUTSIDE RECORDS SUMMARY | 2025-08-04 14:27 | XMS_ITS | Encounter Summary ---
Author Organization [facility] Address [address] [place] [address] Care Team Providers Care Flag Car Driver Name Role Phone Pa Damian MD Primary Care Provider [phone] Encounter Details Date Type Department Care Team (Late st Contact Info) Description 06/11/2024 Lab Requisition [facility] - DermPath Lab [address] [place] [address] Rafael Pascal MD [address] [place] [address] Social History Tobacco Use Types Packs/Day Years [...] AM CDT) Case Report Dermatopathology Report Case: [id number] Authorizing Provider: Rafael Pascal MD Collected: 06/10/2024 03:33 AM Ordering Location: [facility] - Received: 06/11/2024 01:44 PM [...] determined by the Dermatopathology Laboratory at [facility], directed by Dr. Vivian Guo. These tests need not be, and therefore are not, approved by the [place] Food and Drug Administration. The tests are used for clinical purposes. Billing Codes Specimen Charges Stain Charges 54602 1 4 2:05 PM CDT DERMATOPATHOLOGY LABORATORY Embedded Images 4 2:05 PM CDT DERMATOPATHOLOGY LABORATORY Pathology/Cytolo gy TISSUE SPECIMEN FROM SKIN / Unknown 06/10/2024 3:33 AM CDT 06/11/2024 1:44 PM CDT Rafael Pascal MD LAB - PATHOLOGY/CYTOLOGY ORD ERABLES Final Result DERMATOPATHOLOGY LABORATORY [facility] - Department of Dermatology [facility] [address] [phone] documented in this encounter Visit Diagnoses Not on filedocumented in this encounter Care Teams Flag Car Driver Relationship Specialty Start Date End Date Pa Damian MD [address] [place] [address] PCP - General Family Medicine 03/24/17 documented as of this encounter
--- OUTSIDE RECORDS SUMMARY | 2025-08-04 14:27 | XMS_ITS | Clinical Summary ---
Author Organization [facility] Address [address] [place] [address] Care Team Providers Care Telegraph Repeater Mechanic Name Role Phone Pa Damian MD Primary Care Provider [phone] Source Comments [facility],non-owned Affiliates and Associated Physician Practices is amultiple site organization consisting of ambulatory clinics and hospital sitesin [place], [place], [place] and [place]. This disclosure is being madepursuant to the Care Everywhere program and may not contain all information available regarding this patient. Last updated 18.[facility] Allergies No known active allergies Medications * [...] to complete this topic Insurance MEDICARE AETNA SELF PAY NO INSURANCE Member Subscriber Plan / Payer (Ef fective for All Dates) Name:Nina Owens Member ID:Not on file Relation to Subscriber:Not on file Name:NINA OWENS Subscriber ID:Not on file (Home) Address: [address] [place] [id number] Payer ID:Not on file Group ID:Not on file Type:Self Pay Address: [place], [place] Care Teams Telegraph Repeater Mechanic Relationship Specialty Start Date End Date Pa Damian MD [address] [place] [id number] PCP - General Family Medicine 03/24/17
--- OUTSIDE RECORDS SUMMARY | 2025-08-04 14:27 | XMS_ITS | Clinical Summary ---
Author Organization [facility] Address [address] [place] [address] Care Team Providers Care Heel Trimmer Name Role Phone Unavailable Primary Care Provider [...]
--- OUTSIDE RECORDS SUMMARY | 2025-08-04 14:27 | XMS_ITS | Encounter Summary ---
Author Organization [facility] Address 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
--- OUTSIDE RECORDS SUMMARY | 2025-08-04 14:27 | XMS_ITS | Data Portability ---
Author Organization [facility] Address [address] [place] [address] Care Team Providers Care Wood Scrap Handler Name Role Phone BENTON MENSAH Primary Care Provider Assessment Encounter Date Assessment Date Assessment LastModified [...] + vertebral fracture assessment 2024 025 [facility], [address], [place], [address], 04:05:15 Medication Orders None recorded. Patient TargetsNo targets recorded. Patient Instructions Encounter Date Encounter Id Patient Instructions Last Modified By Organization Details Last Modified Time 08/30/2020 [id number] [email or web address] Not available 09:57:55 Reason for Referral None Reported. Results Created Date Observation Date Name Description Value Unit Range Abnormal Flag Note LastModifiedBy Organization Detail LastModifiedTime 10/30/19 21 MAMMO , scree shy, bilat eral No observ ation record ed. AMADEO Not Available 2020 14:13:09 05/28/20 25 05/22/2025 DEXA, axial skele ton + verte bral fract ure asses sment No observ ation record ed. [facility] [address], [place], [address], 06/09/2025 15:24:53 Result Notes None recorded. Problems Name Problem SNOMED Code Status Onset Date Resolution Date Notes Provider Name and Address Organization Details Recorded Time Screening for malignant neoplasm of colon Active 2010 Special screening for malignant neoplasms, colon;Prac allan ID: 0001 Not Available [facility] 0 21:54:04 Adult health examinatio n Active 2013 Routine general medical examinatio n at a health care facility;P gerard ID: 0001 Not Available [facility] 0 21:54:03 Specialize d medical examinatio n Active 2013 Routine gynecologi meghna examinatio n;Practice ID: 0001 Not Available [facility] 0 21:54:03 Screening for malignant neoplasm of cervix Active 2013 Pap Smear;Prac allan ID: 0001 Not Available [facility] 0 21:54:03 [facility] [id number] Active 2014 [facility] a;Practice ID: 0001 Not Available [facility] 0 21:54:03 Evaluation finding Active 2016 Hematuria, unspecifie d;Practice ID: 0001 Not Available [facility] 0 21:54:[address] Concept Active 2016 Encounter for general adult medical exam w abnormal findings;P gerard ID: 0001 Not Available [facility] 0 21:54:[address] Concept Active 2017 Encntr for pie topper exam (general) (routine) w/o abn findings;P kayatice ID: 0001 Not Available [facility] 0 21:54:02 Screening for malignant neoplasm of rectum Active 2017 Encounter for screening for malignant neoplasm of rectum;Pra ctice ID: 0001 Not Available [facility] 0 21:54:[address] Concept Active 2018 Encntr for general adult medical exam w/o abnormal findings;Armando gee ID: 0001 Not Available [facility] 0 21:54:03 Problem Notes None recorded. Procedures Surgical History Date Name Laterality Status Provider Name and Address Organization Details Recorded Time 08/30/20 Date of Last Pap Smear completed Ashly Berg [facility] 03/01/2023 09:43:22 Hysteroscopy completed Deena Hernández [facility] 08/30/2020 09:27:45 Colonoscopy completed Deena [facility] 08/30/2020 09:27:51 Imaging Results None recorded. [...] vitamin E 100 unit capsule 02/28 [facility] ed Elsewher e: Yes Loca tion: [facility] odify By: jose r meneses DateTime : [...] by oral route every week 02/28 completed [facility] ed Elsewher e: Yes Loca tion: [facility] odify By: jose r meneses DateTime : [...] ed Zeke e: Yes Loca tion: [facility] Conchis odtosha By: kinga shane DateTime : [...] Updated DateTime 03/01/2023 162.56 cm 25.7 kg/m2 53835.86 g 116/74 mm[Hg] Ashly Berg [facility] 03/01/2023 09:42:50 Date Recorded Body height Body mass index (BMI) Body weight Systolic And Diastolic Provider Name and Address Organization Details Last Updated DateTime 03/02/2025 162.56 cm 25 kg/m2 60948.77 g 112/73 mm[Hg] Gabrielle Paris [facility] 03/02/2025 09:12:15 Date Recorded Systolic And Diastolic Provider Name and Address Organization Details Last Updated DateTime 08/30/2020 140/82 mm[Hg] Geeta Prescott, [facility] [address], [place], [address], [facility] 08/30/2020 09:59:59 Date Recorded Body height Body mass index (BMI) Body weight Provider Name and Address Organization Details Last Updated DateTime 08/30/2020 162.56 cm 26.4 kg/m2 58792.22 g Deena Hernández [facility] 08/30/2020 09:38:35 Social History Question Answer Notes LastModified by Organizat ion Details LastModified Time Tobacco Smoking Status Never Smoker Deena Hernández null, [facility] 08/30/2020 09:27:37 In The 14 Days [...] ICD10 Code Diagnosis IMO Codes Diagnosis Note [id number] Geeta Prescott [facility] [address] [address] 08/30/2020 09:22:28 08/30/2020 14:17:08 Gynecologic examination 06297340 Z01.419 Take Calcium with Vitamin D 12-1500mg daily. Do monthly self breast exams. It is advised to get annual flu shot in the fall and she could obtain at [facility] or [facility] care clinic. If you haven't [...] well balanced diet. No issues or complaints [id number] [facility] [address] [address] 03/01/2023 09:31:35 03/01/2023 10:08:45 Gynecologic examination 67555378 Z01.419 Take Calcium with Vitamin D 12-1500mg daily. Do monthly self breast exams. It is advised to get annual flu shot in the fall and she could obtain at [facility] or [facility] care clinic. If you haven't [...] PRN as PCP can order routine screenings [id number] BRANDON Morocho [facility] [address] [address] 03/02/2025 09:01:41 03/02/2025 10:03:10 Gynecologic examination 32321322 Z01.992 [id number] WWEpostmen opausalPap - not indicated todaySTI screen [...] estions have been answered. Screening for osteoporosis [id number] Z13.820 [id number] Health Concerns Section Related Observation LastModified by Organization Detai ls LastModified Time None Recorded Concern Status LastModified by Organization Details LastModified Time None Recorded Advance Directives Directive None Recorded Payers Insurance Date Sequence Insurance Name Policy Number Policy Rae Covered Member ID Rae Member ID Guarantor Name 02/07/2023 1 [employer] Sunil Means [id number] Nina Means 04/21/2025 2 AETNA (MEDICARE SUPPLEMENT) Nina L Means [id number] Nina Means 03/02/2025 1 [place] Nina L Means [id number] Nina Means Notes Date Note Type Note [...] screening(dexa utd due next year). [facility] [address], [place], [address], [facility] 08/30/2020 10:00:05 3 text/html Annual Cnc Lathe Programmer Post-MenopausalReported by PatientGenitourinary symptomsFor menopausal symptoms, patient [...] colonoscopy. Geeta Prescott [facility]- [address], [place], [address], [facility] 03/01/2023 10:01:53 5 text/html Annual Cnc Lathe Programmer Post-MenopausalReported by PatientGenitourinary symptomsFor menopausal symptoms, patient [...] around 5yrs ago per pt Jeannine escalante, [place] - [facility] 05/21/2025 14:22:14 OBGyn Episode No OBEpisode recorded.
--- OUTSIDE RECORDS SUMMARY | 2025-08-04 14:27 | XMS_ITS | Clinical Summary ---
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
--- OUTSIDE RECORDS SUMMARY | 2025-08-04 14:27 | XMS_ITS | Patient Health Record ---
Author Organization [facility] [employer] [facility] Address [address] [facility] [address] [place] [address] Care Team Providers Care Respiratory Supervisor Name Role Phone Juani Velasquez Unavailable [phone] Brittany Vu Unavailable [phone] Allergies No Known Allergies Results Component Value Reference Range Notes UDT Reviewed date:06/02/2025 08:48:44 AM Interpretation: Performing Lab: Notes/Report: THC N 0 - 50 ng/ml Cocaine N 0 - 300 ng/ml Amphetamine N 0 - 1000 ng/ml Buprenorphine (BUP) N 0 - 10 ng/ml Secobarbital (Bar) N 0 - 300 ng/ml Oxazepam (BZO) N 0 - 300 ng/ml 2-sakbdljzcq-3,8-uplgogxg-4,3-diphenylpyrrolidine (ENA P) N 0 - 300 ng/ml Methamphetamine (MET) N 0 - 1000 ng/ml Methylenedioxymethamphetamine (MDMA) N 0 - 500 ng/ml Morphine (MOP 300/AGT1234) N 0 - 300 ng/ml Methadone (MTD) [...] MCG X4)/0.5 ML IM SYRINGE *Reorder from [employer] for eRx and Interaction Alerts* 02/14/2024 Not-Taking [...] unspecified formulation Unknown 07/13/2021 A dministered Novel Cflwlgtsq-S0V9-88, preservative free Unknown 07/20/2014 Administered Novel Egcobqrbz-R4H3-43, preservative free Unknown 07/26/2017 Administered Novel Sndlbqgdp-G8G8-53, preservative free Unknown 07/02/2018 Administered Novel Eofzvcjgc-X5Q9-69, preservative free Unknown 07/11/2018 Administered Novel Lbjhhzamr-B9N1-28, preservative free Unknown 07/29/2019 Administered Novel Xxjzaipky-E5M7-82, preservative free Unknown 06/14/2020 Administered Pfizer [employer] [...] Risk Notes Problem Mild recurrent major depression (55884634) Major depressive disorder, recurrent, mild (F33.0) Active confirmed Problem Generalized anxiety disorder (51655129) Generalized anxiety disorder (F41.1) Active confirmed Problem Essential hypertension (38109948) Benign essential HTN (I10) Active confirmed Vital Signs Heart Rate 68 /min 12/04/2024 Respiratory Rate 17 /min 06/02/2025 Height-cm 162.61 cm 06/02/2025 Blood pressure diastolic 78 mm Hg 06/02/2025 Weight-kg 66.68 kg 06/02/2025 Height 64.02 in 06/02/2025 Blood pressure systolic 112 mm Hg 06/02/2025 Weight 147 lbs 06/02/2025 BMI 25.21 kg/m2 06/02/2025 Encounters Encounter Location Date Provider Diagnosis [facility] [employer] [place] [address] [address] [facility] [address] [address] 12/04/2024 Brittany Vu Benign essential HTN I10 ; Major depressive disorder, recurrent, mild F33.0 and Generalized anxiety disorder F41.1 [facility] [employer] [place] [address] [address] 06/02/2025 Juani Velasquez Major depressive disorder, recurrent, mild F33.0 ; Benign essential HTN I10 and Generalized anxiety disorder F41.1 Assessments Encounter Date Diagnosis (ICD Code) Assessment Notes Treatment Notes Treatment Clinical Notes Section Notes 12/04/2024 Major depressive disorder, recurrent, mild (ICD-10 - F33.0) 12/04/2024 Benign essential HTN (ICD-10 - I10) [...] neurotoxicity and interactions with prescribed medications. 06/02/2025 Generalized anxiety disorder (ICD-10 - F41.1) [...] neurotoxicity and interactions with prescribed medications. 12/04/2024 Generalized anxiety disorder (ICD-10 - F41.1) Plan Of Treatment Next Appt Details Provider Name:Juani Velasquez , 11/24/2025 08:15:00 AM, [address], [address], [place], [address], Insurance Providers Payer Name Payer Address Payer Phone Subscriber Number Group Number Insured Name Patient Relationship to Insured Coverage Start Date Coverage End Date [place] [address] [place] [phone] [id number] MEANSANA Self - patient is the insured [facility] [employer] Medicare Supplement [address] [address] [place] [address] [id number] MEANS, ANA Self - patient is the insured Medical (General) History Medical History History ICD Code Problems: Generalized anxiety disorder Mild recurrent major depression HTN GERD
== END 2025-08-04 12:49 | disposition home or self-care (01) ==
LOC: ANHFOHIMG 12:50
PROVIDERS: PCP Family Medicine; Visit Provider Nurse Practitioner
DX: Z12.31 Encounter for screening mammogram for malignant neoplasm of breast (principal)
CPT/HCPCS: 77063; 77067